=== PATIENT | female | born 1985 | race Caucasian/White ===

== ENCOUNTER → 2020-04-24 12:29 | Outpatient (BNVA) | payer OTHER, SELFPAY | PROVIDERS: PCP Nurse Practitioner Family; Referring Provider Nurse Practitioner Family; Visit Provider Student in an Organized Health Care Education/Training Program | DX: L93.2 Other local lupus erythematosus (principal); L40.9 Psoriasis, unspecified; Z79.899 Other long term (current) drug therapy | CPT/HCPCS: 99212 ==

== ENCOUNTER 2020-04-28 15:20 | Outpatient (REF) | payer OTHER, SELFPAY | END 2020-04-28 15:21 | disposition home or self-care (01) | LOC: HO.LAB 15:20 | PROVIDERS: Visit Provider Nurse Practitioner Family | DX: N39.0 Urinary tract infection, site not specified (principal) | CPT/HCPCS: 87086; 87088; 87186 ==

== ENCOUNTER 2020-07-17 13:11 | Outpatient (REF) | payer OTHER, SELFPAY | END 2020-07-17 13:12 | disposition home or self-care (01) | LOC: HO.LAB 13:11 | PROVIDERS: Visit Provider Nurse Practitioner Family | DX: N39.0 Urinary tract infection, site not specified (principal) | CPT/HCPCS: 87086; 87088; 87186 ==

== ENCOUNTER 2020-10-15 14:15 | Outpatient (REF) | payer OTHER, SELFPAY | END 2020-10-15 14:16 | disposition home or self-care (01) | LOC: HO.LNP 14:15 | PROVIDERS: Visit Provider Hospitalist | DX: Z20.822 Contact with and (suspected) exposure to COVID-19 (principal); K52.9 Noninfective gastroenteritis and colitis, unspecified | CPT/HCPCS: U0003; U0005 ==

== ENCOUNTER 2020-12-12 09:58 | Outpatient (REF) | payer OTHER, SELFPAY ==
--- NOTE | ~2020-12-12 | MM_ITS ---
EXAMINATION: MM SCREENING DIGITAL BREAST TOMOSYNTHESIS, BILATERAL CLINICAL INFORMATION: Screening. Asymptomatic. The lifetime risk of breast cancer based on the Tyrer-Cuzick Model is 17%. COMPARISON: Mammography: 08/12/2017 (baseline) TECHNIQUE: Digital breast tomosynthesis is performed in both the craniocaudal and mediolateral oblique views along with computer-aided detection (CAD). Synthesized 2D images are generated from the tomosynthesis. FINDINGS: There are scattered areas of fibroglandular density (ACR BI-RADS breast composition Category b). There are no significant masses, abnormal calcifications, or other abnormalities. Parenchymal pattern is similar to prior baseline exam. No significant changes. MM/MM tomosynthesis screening BI IMPRESSION: No mammographic evidence of malignancy. ASSESSMENT: BI-RADS 1: Negative RECOMMENDATION: Routine annual mammography screening. This patient's information was entered into a reminder system with a target due date for their next mammogram.
== END 2020-12-12 09:59 | disposition home or self-care (01) ==
LOC: HO.MAMMO 09:58
PROVIDERS: PCP Nurse Practitioner Family; Visit Provider Nurse Practitioner Family
DX: Z12.31 Encounter for screening mammogram for malignant neoplasm of breast (principal)
CPT/HCPCS: 77063; 77067

== ENCOUNTER 2021-04-22 09:07 | Outpatient (REF) | payer OTHER, SELFPAY ==
[2021-04-22 11:19] LABS: Appearance Urine HAZY; Color Urine YELLOW; Glucose Urine UA NEG (NEG); Leukocyte Esterase Urine 2+ (NEG); Nitrite Urine NEG (NEG); UACC Culture Trigger YES; Urine Blood TRACE (NEG); Urine Ketones NEG (NEG); Urine Protein NEG (NEG-TRACE)
[2021-04-22 11:45] LABS: Alanine Aminotransferase 18 U/L (0-31); Albumin Level 4.4 g/dL (3.5-5.0); Alkaline Phosphatase 47 U/L (39-117); Anion Gap 13 (12-20); Aspartate Amino Transferase 16 U/L (5-31); Bilirubin Total 0.3 mg/dL (0.0-1.0); Blood Urea Nitrogen 16 mg/dL (9-16); Calcium 9.2 mg/dL (8.4-10.2); Carbon Dioxide 25 mmol/L (22-29); Chloride 105 mmol/L (96-108); Cholesterol 199 mg/dL; Estimated Glomerular Filt Rate > 60; Glucose Fasting 104 mg/dL (60-99); HDL Cholesterol 39 mg/dL; Potassium 4.5 mmol/L (3.3-5.1); Sodium 138 mmol/L (135-145); Total Protein 7.1 g/dL (6.5-8.0); Triglycerides 420 mg/dL
[2021-04-22 11:48] LABS: Squamous Epithelial Cell Urine 2+ /LPF
[2021-04-22 11:49] LABS: Bacteria Urine 3+ /LPF; Mucus Urine TRACE /LPF; WBC Urine 30-49 /HPF (0-4)
[2021-04-22 11:56] LABS: TSH reflex Free T4 0.89 uIU/mL (0.32-4.0)
== END 2021-04-22 09:08 | disposition home or self-care (01) ==
LOC: HO.HMGCLDS 09:07
PROVIDERS: PCP Nurse Practitioner Family; Visit Provider Nurse Practitioner Family
DX: Z00.00 Encounter for general adult medical examination without abnormal findings (principal)
CPT/HCPCS: 36415; 80053; 80061; 81001; 84443; 87086; 87088; 87186

== ENCOUNTER 2022-03-12 09:29 | Outpatient (REF) | payer OTHER, SELFPAY ==
[2022-03-12 09:57] LABS: Binax Internal Control QC Valid; Binax Now Covid-19 Ag Negative (Negative)
[2022-03-12 12:25] LABS: Influenza A PCR NEGATIVE (Negative); Influenza B PCR NEGATIVE (Negative); Resp Syncy Virus RNA Qual PCR NEGATIVE (Negative); SARS COV2 PCR INHOUSE NEGATIVE (Negative)
== END 2022-03-12 09:30 | disposition home or self-care (01) ==
LOC: HO.HMGCLDS 09:29
PROVIDERS: PCP Nurse Practitioner Family; Visit Provider Physician Assistant Medical
DX: Z20.822 Contact with and (suspected) exposure to COVID-19 (principal); R05.9 Cough, unspecified
CPT/HCPCS: 0241U; 87811; C9803

== ENCOUNTER 2022-03-22 16:37 | Emergency (ER) | payer OTHER, SELFPAY ==
[2022-03-22 16:43] VITALS: BP 122/76; PULSE 60; RESP 18; TEMP 36.8; O2SAT 98; BMI 27.4
[2022-03-22 17:07] LABS: MANUAL DIFF FLAG NO
[2022-03-22 17:17] LABS: Basophils Percent Auto 0.4 % (0-2); Eosinophils Absolute Auto 0.1 X10*3/uL (0.0-0.4); Eosinophils Percent Auto 2.2 % (0-4); Hematocrit 38.5 % (37.0-47.0); Hemoglobin 12.7 g/dl (12.0-16.0); Imm Gran Abs Auto 0.02 X10*3/uL (0.00-0.03); Imm Gran Pct Auto 0.4 % (0.0-0.4); Lymphocytes Absolute Auto 2.6 X10*3/uL (1.2-4.9); Lymphocytes Percent Auto 46.3 % (20-40); Mean Corpuscular Hemoglobin 29.7 pg (27.0-33.0); Mean Corpuscular Volume 90.2 fL (80.0-98.0); Mean Platelet Volume 10.3 fL (9.4-12.3); Monocytes Absolute Auto 0.4 X10*3/uL (0.1-1.2); Monocytes Percent Auto 7.4 % (2-11); Neutrophils Absolute Auto 2.4 x10*3/uL (2.0-8.3); Neutrophils Percent Auto 43.3 % (45-73); Platelet Count 270 X10*3/uL (160-400); Red Blood Count 4.27 X10*6/uL (4.20-5.50); White Blood Count 5.6 X10*3/uL (4.8-10.8)
[2022-03-22 17:29] LABS: Anion Gap 14 (12-20); Blood Urea Nitrogen 16 mg/dL (9-16); Calcium 9.3 mg/dL (8.4-10.2); Carbon Dioxide 24 mmol/L (22-29); Chloride 104 mmol/L (96-108); Creatinine Clr Calc Pharmacy 93.8; Estimated Glomerular Filt Rate > 60; Glucose Random 94 mg/dL (60-115); Potassium 4.4 mmol/L (3.3-5.1); Sodium 138 mmol/L (135-145)
== END 2022-03-22 22:43 | disposition left against medical advice (07) ==
PROVIDERS: Emergency Provider Emergency Medicine; PCP Nurse Practitioner Family
DX: K92.1 Melena (principal); Z79.899 Other long term (current) drug therapy
CPT/HCPCS: 36415; 80048; 85025; 99281; 99283

== ENCOUNTER 2022-04-05 09:44 | Outpatient (REF) | payer OTHER, SELFPAY ==
[2022-04-05 12:39] LABS: C Reactive Protein 0.07 mg/dL (< or = 0.50)
[2022-04-05 13:06] LABS: Erythrocyte Sedimentation Rate 5 MM/HR (0-20)
[2022-04-05 13:17] LABS: Thyroid Stimulating Hormone 1.73 uIU/mL (0.32-4.0)
[2022-04-07 23:26] LABS: Transglutaminase IgA <1.0 U/mL
[2022-04-13 15:48] LABS: Endomysial IgA Antibody Negative (Negative)
== END 2022-04-05 09:45 | disposition home or self-care (01) ==
LOC: HO.WFDLDS 09:44
PROVIDERS: Visit Provider Physician Assistant
DX: R10.9 Unspecified abdominal pain (principal); R19.5 Other fecal abnormalities; R19.7 Diarrhea, unspecified
CPT/HCPCS: 36415; 84443; 85652; 86140; 86231; 86364

== ENCOUNTER → 2022-04-22 11:36 | Outpatient (BNVA) | payer OTHER, SELFPAY | PROVIDERS: PCP Nurse Practitioner Family; Visit Provider Internal Medicine Gastroenterology | DX: R19.5 Other fecal abnormalities (principal); R10.31 Right lower quadrant pain; L93.2 Other local lupus erythematosus; L40.9 Psoriasis, unspecified | CPT/HCPCS: 99212 ==

== ENCOUNTER 2022-07-25 09:24 | Outpatient (REF) | payer OTHER, SELFPAY ==
--- NOTE | ~2022-07-25 | CT_ITS ---
EXAMINATION: CT ENTEROGRAPHY ABDOMEN AND PELVIS WITH CONTRAST CLINICAL INFORMATION: Periumbilical pain. COMPARISON: None TECHNIQUE: Study performed with oral Breeza(1500 mL) and 2 cups of water to distend the abdomen. The patient was injected with 85 mL Omnipaque 350 intravenous contrast which was administered without adverse effect. Coronal and sagittal reformatted images were obtained at the technologist's workstation. This CT examination was performed using dose optimization techniques as appropriate, variously including the following: *Automated exposure control *Adjustment of mA and/or kV according to patient size (this includes techniques or standardized protocols for targeted exams where dose is matched to indication/reason for exam; i.e. extremities or head) *Use of iterative reconstruction technique DLP: 418 mGy-cm FINDINGS: GASTROINTESTINAL FINDINGS: STOMACH: Well-distended and normal in appearance. SMALL INTESTINE: Moderately well-distended without focal abnormality. Several areas of limited distention in the distal ileum are noted but no evidence to suggest obstruction or significant changes of bowel wall thickening. LARGE INTESTINE: No thickening of the cecal pole. Suggestion of thickening and mild enhancement of the ascending colon to the level of the hepatic flexure. The remaining colon is stool-filled without focal thickening or pericolonic changes. The appendix appears to be visible and normal in appearance at the base of the cecum. ADDITIONAL FINDINGS: No abnormal enhancement of the vasa recta or significant mesenteric or retroperitoneal lymphadenopathy is seen. No abdominal abscess or fistulous tract demonstrated. ABDOMINAL AND PELVIC CT FINDINGS: LIVER, GALLBLADDER, BILIARY TRACT: The liver enhances homogeneously. No focal biliary dilatation or abnormality seen. Liver size is normal. PANCREAS: Normal. SPLEEN: Normal. ADRENAL GLANDS AND KIDNEYS: The adrenal glands are normal. The patient has horseshoe kidneys with normal enhancement and no evidence of renal mass. URETERS AND BLADDER: No evidence of hydronephrosis or hydroureter. The bladder is partly distended and unremarkable. LYMPHOVASCULAR STRUCTURES: Unremarkable. PELVIC VISCERA: IUD is centrally positioned within the uterus. No focal abnormalities are seen. BONES: Unremarkable. LUNG BASES: Unremarkable. CT/CT enterography IMPRESSION: 1. No evidence of bowel obstruction. No significant thickening of the small bowel. Suggestion of thickening and mild enhancement of the ascending colon to the level of the hepatic flexure. This could reflect a mild colitis. Findings could be correlated with colonoscopy. 2. Moderate stool is seen in the colon. 3. Horseshoe kidneys without evidence of hydronephrosis or renal mass. 4. IUD is centrally positioned within the uterus.
[2022-07-25] MEDS: iohexoL 350 MG/ML 100 ML INFUS..BTL 85 ML IV (10:58)
[2022-07-25] MEDS: Sorbitol/Mannit/Xanth Imaging 500 ML LIQUID 1500 ML PO (10:59)
== END 2022-07-25 09:25 | disposition home or self-care (01) ==
LOC: HO.CT 09:24
PROVIDERS: PCP Nurse Practitioner Family; Visit Provider Internal Medicine Gastroenterology
DX: R10.33 Periumbilical pain (principal); R10.9 Unspecified abdominal pain; R19.5 Other fecal abnormalities; L93.2 Other local lupus erythematosus; L40.9 Psoriasis, unspecified
CPT/HCPCS: 74177; Q9967

== ENCOUNTER 2022-10-14 12:27 | Outpatient (REF) | payer OTHER, SELFPAY ==
[2022-10-14 13:17] LABS: Influenza A PCR NEGATIVE (Negative); Influenza B PCR NEGATIVE (Negative); Resp Syncy Virus RNA Qual PCR NEGATIVE (Negative); SARS COV2 PCR INHOUSE NEGATIVE (Negative)
== END 2022-10-14 12:28 | disposition home or self-care (01) ==
LOC: HO.LNP 12:27
PROVIDERS: Visit Provider Nurse Practitioner Family
DX: R09.89 Other specified symptoms and signs involving the circulatory and respiratory systems (principal); Z20.822 Contact with and (suspected) exposure to COVID-19
CPT/HCPCS: 0241U

== ENCOUNTER 2022-11-01 12:57 | Day surgery (SDC) | payer OTHER, SELFPAY ==
[2022-09-29 15:40] VITALS: BMI 27.4
--- NOTE | 2022-10-31 12:06 | P.CONAN_ITS ---
Documented by User: Ashanti Marc NP 10/31/22 12:06 HPI - Anesthesia Eval Consult details Narrative: 37yo F for Upper Endoscopy and Colonoscopy PMFSH Active Problems Active Problems: All Active Problems (Updated 10/18/22 @ 11:01 by Barrie Ludwig MD) Upper respiratory tract infection (Acute) Sinusitis (Acute) Pharyngitis (Acute) Urinary tract infection (Acute) Gastroenteritis (Acute) Physical exam (Acute) Urinary tract infection (Acute) Abdominal pain (Acute) Loose stools (Acute) High blood triglycerides (Acute) Psoriasis (Acute) Cutaneous lupus erythematosus (Acute) Past Medical History Medical History Cutaneous lupus erythematosus High blood triglycerides Hx of seizure disorder PONV (postoperative nausea and vomiting) Psoriasis Upper respiratory tract infection Family History Family History Father No problems noted. Mother No problems noted. Brother Depression Sister No problems noted. Sister No problems noted. Sister No problems noted. Surgical History Surgical History History of foot surgery Hx of cholecystectomy Hx of colonoscopy Hx of esophagogastroduodenoscopy Social History Social History Household Members Other:: 2 kids Housing: House Are you a primary medicare contact specialist to a significant other at home: No Do you presently have visiting nurse or other home services: No Alcohol intake: current Alcohol intake frequency: a few times a month Alcohol type: wine and hard liquor Patient Tobacco Use Status: Current everyday Tobacco user Tobacco use type: Cigarette Cigarettes Per Day: 2 Patient Given Instructions on How to Stop Smoking: Yes Date Education Initiated: 09/29/22 Use of substances other than those prescribed or required for medical reasons: Yes Substance Use Frequency: Daily Have you been hit, kicked, punched, or otherwise hurt by someone within the past year? 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 [employer] Allergies Allergy/AdvReac Type Severity Reaction Status Date / Time latex Allergy Unknown itchiness Verified 10/26/22 10:12 Exam Exam Date and Time: October 31, 2022 1206 Height,Weight and Vital Signs: Height 5 ft 2 in Weight 68.039 kg Assessment and Plan Assessment Anesthesia Assessment: Chart Reviewed Documented by User: Kadeem Jaramillo MD 11/01/22 15:03 [facility] Past Medical History Medical History Cutaneous lupus erythematosus High blood triglycerides Hx of seizure disorder PONV (postoperative nausea and vomiting) Psoriasis Upper respiratory tract infection Family History Family History Father No problems noted. Mother No problems noted. Brother Depression Sister No problems noted. Sister No problems noted. Sister No problems noted. Family history of problems with anesthesia: No Surgical History Surgical History History of foot surgery Hx of cholecystectomy Hx of colonoscopy Hx of esophagogastroduodenoscopy History of Problems with Anesthesia: No Social History Social History Household Members Other:: 2 kids Housing: House Are you a primary medicare contact specialist to a significant other at home: No Do you presently have visiting nurse or other home services: No Alcohol intake: current Alcohol intake frequency: a few times a month Alcohol type: wine and hard liquor Patient Tobacco Use Status: Current everyday Tobacco user Tobacco use type: Cigarette Cigarettes Per Day: 2 Patient Given Instructions on How to Stop Smoking: Yes Date Education Initiated: 04/06/23 Use of substances other than those prescribed or required for medical reasons: Yes Substance Use Frequency: Daily Have you been hit, kicked, punched, or otherwise hurt by someone within the past year? If so, by whom?: No Are you DNR?: No Advance Directives: No Advance Directives Information Provided: Yes Advance Directives on File: No Recently lost weight without trying: No Eating poorly because of decreased appetite: No Nutrition Risks: No Nutritional Risk Current occupational status: employed Current occupation: [employer] at [employer] Allergies Allergy/AdvReac Type Severity Reaction Status Date / Time latex Allergy Unknown itchiness Verified 10/26/22 10:12 Exam Airway Mallampati Class: I TM Dist: >3cm Neck ROM: Full Loose/Missing/Broken Teeth: No Assessment and Plan Assessment Anesthesia Assessment: Anesthesia Plan Discussed Final Anesthetic Review Family History of Problems with Anesthesia: No History of Problems with Anesthesia: No NPO: Yes ASA Class: II Final Preanesthetic Review: No Changes in Pt Med Stat, Meds/Allgs Chart Reviewed, Consent Obtained/Reviewed and Anes Risks/Benef Reviewed Patient Risk: Intermediate Procedure Risk: Low Anesthetic Plan Anesthetic Plan: MAC: Disposition: Standard PACU
[2022-11-01] VITALS (7 sets, daily range): BP systolic 90–112; BP diastolic 39–67; PULSE 51–73; RESP 14–18; TEMP 36.2–36.4; O2SAT 96–99; BMI 27.4
[2022-11-01 13:40] LABS: UPreg QC Valid YES; Urine Pregnancy NEGATIVE (NEGATIVE)
[2022-11-01] MEDS: Lactated Ringers 1,000 ML 100 ML IVCONT (13:45)
--- NOTE | 2022-11-01 14:53 | P.HPSUR_ITS ---
Pre-Procedural Eval Section A Date of Service: 11/01/22 Section B Chief Complaint: fecal abnormalities,Unspecified abdominal pain Relevant Family History (Specify if Yes): No Relevant Social History: None Present Medications: see Short Stay Collaborative assessment Medical History: Significant History (Cutaneous lupus erythematosus High blood triglycerides Hx of seizure disorder Psoriasis) History of Previous Operations: Relevant previous surgery/procedure and date(s) (cholecystectomy) Allergies: Allergies Allergy/AdvReac Type Severity Reaction Status Date / Time latex Allergy Unknown itchiness Verified 10/26/22 10:12 Review of Systems Sugical H&P ROS: Negative: Constitution, Cardiovascular, Respiratory, Neurological, Psychiatric, Hem-Onc, Allergic/Immunologic, Gastrointestinal, Genitourinary, Musculoskeletal, Integumentary, Endocrine and Eyes/Ears/ Nose/Throat Exam Surgical H&P Exam: Normal: HEENT, Normal: Heart, Normal: Lungs, Normal: Extremities, Normal: Abdomen, Normal: Skin and Normal: Neurological Plan Diagnosis/Plan: Unchanged I have reviewed the history and physical and performed a pertinent physical examination on my patient. No changes have occurred unless specified. Time Spent With Patient Time: Total time managing care of this patient today ____ minutes.
--- NOTE | 2022-11-01 14:54 | W.PM.OPN ---
Operative Note Operative Note Date of Service: 11/01/22 Narrative: Operative Information Procedure Description: EGD, Colonoscopy Indication: RLQ pain, reectal bleeding Anesthesia: MAC FLEXIBLE TRANSORAL UPPER GASTROINTESTINAL ENDOSCOPY AND COLONOSCOPY PROCEDURE NOTE UPPER ENDOSCOPY Consent: Indications for the procedure and potential complications of bleeding, perforation, reaction to medications and missed diagnosis were discussed with the patient and informed consent was obtained. Instrument: Olympus GIF H 190 J mid size upper endoscope Monitoring: Vital signs and clinical assessment, continuous EKG monitoring, Pulse oximetry, Carbon Dioxide monitoring and blood pressure monitoring were done throughout the procedure. Procedure: The patient was placed in the left lateral decubitis position and pre-procedure medications were administered and a bite block was placed. The endoscope was inserted into the mouth and advanced under direct vision to the third part of duodenum. A careful inspection was made as the upper endoscope was withdrawn including a retroflexed examination of the proximal stomach; Findings and interventions are described below. Findings: Larynx:normal Esophagus: GE junction at 36 cm, diaphragm hiatus at 36 cm, mild erythema, bx taken GEJ, distal and proximal esophagus Stomach: patchy erythema and scarring. Biopsies were obtained. Grade 2 flap valve on retroflexed examination of the cardia. Duodenum: Normal bulb and descending duodenum, bx taken Intervention: Biopsies as noted above COLONOSCOPY Instrument: Olympus variable stiffness pediatric scope 190L Colonoscopy Monitoring: Vital signs and clinical assessment, continuous EKG monitoring, Pulse oximetry, Carbon Dioxide monitoring and blood pressure monitoring were done throughout the procedure. Colon withdrawal time was 10 minutes. Procedure: The patient was placed in the left lateral decubitis position and pre-procedure medications were administered. After a digital rectal examination of the ano-rectum, the video colonoscope was inserted into the rectum and advanced through the colon to the cecum/TI. The colonoscope was slowly withdrawn in a retrograde panoramic fashion and the colon mucosa was carefully examined including a retroflexed view of the rectum. Findings and interventions are described below. Procedure Difficulty:easy Findings: Terminal Ileum-normal, random bx taken Random colon bx taken from right, left and rectum Cecum:normal Ascending Colon: normal Transverse Colon -normal Descending Colon:normal Sigmoid Colon: normal Rectum: Retroflexion with small inflammed, internal hemorrhoids, grade 1 Anorectum - normal Colon preparation: Walker Bowel Preparation Scale Right colon; 3 Transverse colon: 3 Left colon; 3 (0 = Unprepared colon segment with mucosa not seen due to solid stool that cannot be cleared. 1 = Portion of mucosa of the colon segment seen, but other areas of the colon segment not well seen due to staining, residual stool and/or opaque liquid. 2 = Minor amount of residual staining, small fragments of stool and/or opaque liquid, but mucosa of colon segment seen well. 3 = Entire mucosa of colon segment seen well with no residual staining, small fragments of stool or opaque liquid) Impression and Post Procedure Diagnosis: Endoscopy Findings: gastritis esophagitis Colonoscopy Findings: internal hemorrhoids Plan: Await Pathology results Repeat Colonoscopy aged 45 yrs or earlier if clinically indicated High fiber diet leaflet avoid straining at stool, epsom salts and sitz bath, anusol supps or cream if neg then can consider VCE Above findings were reviewed with the patient and relevant handouts were provided if indicated.
== END 2022-11-01 16:19 | disposition home or self-care (01) ==
PROVIDERS: Nurse Practitioner; PCP Nurse Practitioner Family; Visit Provider Internal Medicine Gastroenterology
PROC: (CPT 45380; principal; 2022-11-01 15:00)
DX: K62.5 Hemorrhage of anus and rectum (principal); R19.5 Other fecal abnormalities; K64.0 First degree hemorrhoids; R10.31 Right lower quadrant pain; K29.50 Unspecified chronic gastritis without bleeding; K20.90 Esophagitis, unspecified without bleeding; K44.9 Diaphragmatic hernia without obstruction or gangrene; L93.2 Other local lupus erythematosus; L40.9 Psoriasis, unspecified; E78.1 Pure hyperglyceridemia; Z79.899 Other long term (current) drug therapy; Z86.69 Personal history of other diseases of the nervous system and sense organs; Z90.49 Acquired absence of other specified parts of digestive tract; Z91.040 Latex allergy status; F17.210 Nicotine dependence, cigarettes, uncomplicated
CPT/HCPCS: 45380; 43239; 36415; 81025; 88184; 88185; 88300; 88305; 88313; 88341; 88342

== ENCOUNTER → 2022-11-14 08:59 | Outpatient (BNVA) | payer OTHER, SELFPAY | PROVIDERS: PCP Nurse Practitioner Family; Visit Provider Physician Assistant | DX: K52.9 Noninfective gastroenteritis and colitis, unspecified (principal); M35.9 Systemic involvement of connective tissue, unspecified; R19.5 Other fecal abnormalities | CPT/HCPCS: 99212 ==

== ENCOUNTER 2022-12-26 08:14 | Outpatient (REF) | payer OTHER, SELFPAY ==
--- NOTE | ~2022-12-26 | CT_ITS ---
EXAMINATION: CT ENTEROGRAPHY ABDOMEN AND PELVIS WITH CONTRAST CLINICAL INFORMATION: Iron deficiency COMPARISON: Previous CT enterography exam June 2022 TECHNIQUE: Study performed with oral VoLumen (1350 mL) and 480 mL of water to distend the abdomen. The patient was injected with 85 mL Omnipaque 350 intravenous contrast which was administered without adverse effect. Coronal and sagittal reformatted images were obtained at the technologist's workstation. This CT examination was performed using dose optimization techniques as appropriate, variously including the following: *Automated exposure control *Adjustment of mA and/or kV according to patient size (this includes techniques or standardized protocols for targeted exams where dose is matched to indication/reason for exam; i.e. extremities or head) *Use of iterative reconstruction technique DLP: 358 mGy-cm FINDINGS: GASTROINTESTINAL FINDINGS: Stomach: Well-distended and normal in appearance. Small intestine: Satisfactorily distended and normal in appearance. Large intestine: Question mild colitis of the distal left colon and proximal sigmoid colon with wall thickening versus underdistention. Previously questioned area of mild wall thickening ascending colon on June 2022 exam is no longer seen. No perirectal changes demonstrated. The appendix is normal. Additional findings: No abnormal enhancement of the vasa recta or significant mesenteric or retroperitoneal lymphadenopathy is seen. No abdominal abscess or fistulous tract demonstrated. ABDOMINAL AND PELVIC CT FINDINGS: Liver, gallbladder, biliary tract: The liver is normal. The gallbladder is been. Pancreas: Normal Spleen: Normal Adrenal glands and kidneys: Normal adrenal glands. Horseshoe kidney. Ureters and bladder: Normal. IUD in the uterus in satisfactory position.. Lymphovascular structures: Normal Bones: Increased sclerosis sacroiliac joints, left greater than right. Slight increased sclerosis at the pubic symphysis. Lung bases: Normal CT/CT enterography IMPRESSION: Question mild colitis of the distal left or proximal sigmoid colon. A portion kidney.
== END 2022-12-26 08:15 | disposition home or self-care (01) ==
LOC: HO.CT 08:14
PROVIDERS: PCP Nurse Practitioner Family; Visit Provider Physician Assistant
DX: E61.1 Iron deficiency (principal); K52.9 Noninfective gastroenteritis and colitis, unspecified; M35.9 Systemic involvement of connective tissue, unspecified; R19.5 Other fecal abnormalities
CPT/HCPCS: 74177; Q9967

== ENCOUNTER 2023-03-22 09:02 | Outpatient (AMB) | payer OTHER, SELFPAY ==
--- NOTE | 2023-03-22 09:03 | MHC.PC.OV ---
Vital Signs 03/22/23 09:05 Height 5 ft 2 in Weight 150 lb BMI 27.4 BP 112/74 Blood Pressure Location Rt brachial Position Sitting Pulse 80 Pulse Source Pulse Oximeter Pulse Oximetry (%) 98 Oxygen Delivery Method Room Air Intake Visit Reasons: Annual PE Allergies latex Allergy (Unknown, Verified 03/22/23 09:06) itchiness Tobacco use date assessed: 03/22/23 Dental Screening Dental Screen Date: 03/22/23 Did you have a dental visit in the last 12 months?: Yes Did you have a dental problem in the last 6 months where you did not have access to dental care?: No Was dental information given to patient?: Patient has dentist HPI Annual PE HPI Details Pt is here for a PE. Will order labs. 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 Pt is following up with GI. [facility] Medical History PONV (postoperative nausea and vomiting) Upper respiratory tract infection High blood triglycerides Hx of seizure disorder Psoriasis Cutaneous lupus erythematosus Surgical History Hx of colonoscopy Hx of esophagogastroduodenoscopy History of foot surgery Hx of cholecystectomy Family History Father No problems noted. Mother No problems noted. Brother Depression Sister No problems noted. Sister No problems noted. Sister No problems noted. 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 How often do you have a drink containing alcohol?: Never 3. How often do you have six or more drinks on one occasion?: Never Total Score: 0 Score Reviewed/Action Taken: No Review of Systems Const Denies chills and Denies fever(s) Eyes Denies blurry vision ENT Denies vertigo, Denies dizziness and Denies sore throat Card Denies chest pain at rest, Denies chest pain with activity, Denies diaphoresis, Denies dyspnea and Denies dyspnea on exertion Resp Denies cough, Denies dyspnea, Denies dyspnea on exertion and Denies wheezing GI Denies abdominal pain, Denies melena, Denies hematochezia, Denies constipation, Denies diarrhea and Denies loose stools Denies hematuria Musc Denies numbness and Denies tingling Skin/Breast Denies lesions Neuro Denies vertigo, Denies dizziness, Denies numbness and Denies tingling Psych Denies anxiety, Denies depression, Denies homicidal ideation, Denies suicidal ideation and Denies other (substance abuse) Aller/Immun Denies wheezing Physical exam (Primary Care) Vital Signs: Last Vital Signs Pulse 80 03/22/23 09:05 BP 112/74 03/22/23 09:05 Pulse Ox 98 03/22/23 09:05 Oxygen Delivery Method Room Air 03/22/23 09:05 BMI result Body Mass Index 27.4 Tobacco/Smoking Status: Tobacco use Status Tobacco use date assessed 03/22/23 03/22/23 09:11 Patient Tobacco Use Status Current everyday Tobacco 03/22/23 09:11 Tobacco use type Cigarette 03/22/23 09:11 e-Cigarette/Vaping Use Never Used 03/22/23 09:11 Thrive Assessment: Date of Thrive Assessment Date Thrive assessed 02/02/21 03/22/23 09:11 Const General: cooperative Nutritional Appearance: well nourished Orientation/consciousness: patient oriented x3 HENMT Head: Yes normal to inspection, Yes normocephalic and Yes atraumatic Ears: TM's normal bilaterally Eyes General: appearance normal, both eyes and all related structures Alignment and Position: alignment normal and position normal Neck Neck: Yes normal visual inspection and Yes no lymphadenopathy Thyroid: Thyroid normal Resp Effort & Inspection: normal respiratory effort Auscultation: clear to auscultation bilaterally Cardio Rate: regular rate Rhythm: regular rhythm Heart sounds: S1 normal heart sound present, S2 normal heart sound present and no murmurs GI Palpation (GI): Soft to palpation and nontender Auscultation: normal bowel sounds Skin Rashes: no rashes Neuro General: patient oriented x3, moves all extremities, no focal motor deficits and deep tendon reflexes 2+ bilaterally Romberg Test: Negative Psych Appearance: grossly normal Mental Status: mental status grossly normal Speech and movement: Normal speech and movement present Affect: normal affect Attitude: cooperative Thought process: Normal thought process present Thought content: Normal thought content present Insight: Good insight present (Psych) Judgement: Good judgement present (Psych) Assessment and Plan Assessment & Plan (1) Physical exam: Code(s): Z00.00 - Encounter for general adult medical examination without abnormal findings Plan: Labs ordered Plan The patient agreed to the use of a medical billing specialist for this encounter. Scribed for SAMUEL Rayo by Erika Osman medical billing specialist, on 03/22/2023 at 09:20 EST. Orders: Orders Complete Blood Count Auto Diff Today Z00.00 - Encounter for general adult medical examination without abnormal findings TSH reflex Free T4 Today Z00.00 - Encounter for general adult medical examination without abnormal findings Comprehensive [place]. Panel Fast Today Z00.00 - Encounter for general adult medical examination without abnormal findings UA CC w/rflx Micro + Cult Today Z00.00 - Encounter for general adult medical examination without abnormal findings Lipid Panel Today Z00.00 - Encounter for general adult medical examination without abnormal findings Coding Level of Care Code Est Pt Prev Care [id number]([id number]) Diagnoses Physical exam Z00.00
[2023-03-22 09:05] VITALS: BP 112/74; PULSE 80; O2SAT 98; BMI 27.4
== END 2023-03-22 09:30 | disposition home or self-care (01) ==
PROVIDERS: PCP Nurse Practitioner Family; Visit Provider Nurse Practitioner Family
DX: Z00.00 Encounter for general adult medical examination without abnormal findings (principal)
CPT/HCPCS: 99395

== ENCOUNTER 2023-04-21 08:55 | Outpatient (AMB) | payer OTHER, SELFPAY ==
[2023-04-21 09:27] VITALS: BP 128/60; PULSE 79; TEMP 36.4; O2SAT 96; BMI 26.7
--- NOTE | 2023-04-21 09:27 | AM.OFFWIN_ITS ---
Intake Vital Signs 04/21/23 09:27 Height 5 ft 2 in Weight 146 lb BMI 26.7 BP 128/60 Blood Pressure Location Lt brachial Position Sitting Pulse 79 Pulse Source Pulse Oximeter Temp 97.5 F Temp Source Temporal Artery Scan Pulse Oximetry (%) 96 Oxygen Delivery Method Room Air Intake Visit Reasons: EP Cold, Cough (masked) Intake Note: pt is here for c/o cold, cough, sore throat Patient Tobacco Use Status: Current everyday Tobacco user Allergies latex Allergy (Unknown, Verified 04/21/23 09:28) itchiness Do you need a note to return to daycare/school/sports/work: Yes HPI HPI Comments History of Present Illness Details This is a 37-year-old female with a past medical history of depression and asthma presenting for evaluation of a headache and sore throat that she has had since Monday. Patient states that her son has also been sick with similar symptoms. She denies having any fevers, chills, ear pain or shortness of breath however does describe having an occasional nocturnal cough with wheezing. Patient states she has run out of her albuterol inhaler and be lieves she may still have a refill remaining at the pharmacy. The patient and her son both took tests for COVID-19 at home which were negative. [facility] Medical History PONV (postoperative nausea and vomiting) Upper respiratory tract infection High blood triglycerides Hx of seizure disorder Psoriasis Cutaneous lupus erythematosus Surgical History Hx of colonoscopy Hx of esophagogastroduodenoscopy History of foot surgery Hx of cholecystectomy Family History Father No problems noted. Mother No problems noted. Brother Depression Sister No problems noted. Sister No problems noted. Sister No problems noted. 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 [email or web address] Cognitive needs: No Hearing needs: No Vision needs: Yes Review of Systems Const All systems reviewed & are unremarkable except as noted in HPI and below Denies chills, Reports fatigue, Denies fever(s), Denies headache(s) and Denies weakness Eyes Reports as per HPI ENT Reports as per HPI, Denies otalgia, Denies headache(s), Denies sinus pressure and Reports sore throat Card Denies dyspnea and Denies dyspnea on exertion Resp Reports cough, Denies dyspnea, Denies dyspnea on exertion and Reports wheezing Musc Reports no additional complaints Skin/Breast Reports system reviewed and no additional complaints, except as documented Neuro Reports no additional complaints, Denies headache(s) and Denies weakness Endo Reports fatigue Aller/Immun Reports wheezing Physical Exam Vital Signs: Last Vital Signs Temp 97.5 F 04/21/23 09:27 Pulse 79 04/21/23 09:27 BP 128/60 04/21/23 09:27 Pulse Ox 96 04/21/23 09:27 Oxygen Delivery Method Room Air 04/21/23 09:27 BMI result Body Mass Index 26.7 Const General: cooperative, healthy appearing, comfortable and no acute distress Nutritional Appearance: average body habitus and well nourished Orientation/consciousness: patient oriented x3 Limitations: no limitations HEENT Head: Yes normocephalic Ears: external ears normal, right TM abnormal (right TM bulging without erythema) and TM normal on the left General nose exam: Normal external nose present Face and sinus: Yes normal facial exam and Yes sinuses nontender Mouth: Normal oral and palatal mucosa present, oropharynx normal and moist mucous membranes Teeth and gingiva: dentition normal Throat: Yes posterior oropharynx normal, Yes uvula midline and No postnasal drainage Eyes General: appearance normal, both eyes and all related structures Eyelids: Yes eyelids normal Conjunctivae: conjunctivae normal Sclerae: sclerae normal Pupils: Equal, round and reactive pupils present Direct Ophthalmoscopy: no photophobia Neck Lymphatic: no lymphadenopathy noted Resp Effort & Inspection: normal respiratory effort, able to speak in complete sentences, audible wheezes (right, expiratory only, no tachypnea) and no respiratory distress Auscultation: wheezes Cardio Rate: regular rate Rhythm: regular rhythm Neuro General: patient oriented x3 Cranial nerves: Yes Equal, round and reactive pupils present Psych Appearance: grossly normal Mental Status: mental status grossly normal Insight: Good insight present (Psych) Judgement: Good judgement present (Psych) Results AMB Rapid Strep AMB Rapid Strep Negative Last Edit by Sb Farnsworth CMA on 04/21/23 09 :58 Results Reviewed Results Reviewed: negative rapid strep test Assessment & Plan Assessment & Plan (1) Acute pharyngitis: Code(s): J02.9 - Acute pharyngitis, unspecified Plan: Albuterol inhaler q.6 hours p.r.n.; patient's rapid strep test is negative and the patient will be discharged home with supportive measures only. Given this patient's examination, antibiotic therapy is not warranted at this time. Orders: Orders AMB Rapid Strep Screen Today Z13.9 - Encounter for screening, unspecified Coding Level of Care Code Est Pt Level 3 (12607) Diagnoses Acute pharyngitis J02.9 Time Spent (min) 20
== END 2023-04-21 10:18 | disposition home or self-care (01) ==
PROVIDERS: PCP Nurse Practitioner Family; Visit Provider Physician Assistant
DX: J02.9 Acute pharyngitis, unspecified (principal)
CPT/HCPCS: 87880; 99213

== ENCOUNTER 2023-05-02 11:34 | Outpatient (AMB) | payer OTHER, SELFPAY ==
--- NOTE | 2023-05-02 11:51 | MHC.OFFWIV ---
Intake Vital Signs 05/02/23 11:52 Height 5 ft 2 in Weight 151 lb 4 oz BMI 27.7 BP 118/72 Blood Pressure Location Rt brachial Position Sitting Pulse 71 Pulse Source Pulse Oximeter Pulse Oximetry (%) 97 Oxygen Delivery Method Room Air Intake Visit Reasons: EST/rash on genitals/painful (lobby) Patient Tobacco Use Status: Current everyday Tobacco user Allergies gluten [GLUTEN] Allergy (Mild, Verified 05/02/23 11:52) SWELLING, ABDOMINAL PAIN latex [LATEX] Allergy (Unknown, Verified 05/02/23 11:52) HIVES AND ITCHING Medication List - Last Reconciled 05/02/23 by Matilde Alegre MD albuterol sulfate 90 mcg/actuation 2 puffs inhalation Q4-6H PRN 30 days cetirizine 10 mg PO DAILY PRN 30 days fluoxetine 60 mg (3 x 20 mg) PO DAILY 90 days omega-3 acid ethyl esters 1 cap PO BID 30 days Do you need a note to return to daycare/school/sports/work: Yes HPI EST/rash on genitals/painful (lobby) HPI Details Patient is 37-year-old female came to be evaluated for painful genitalia rash On examination I do not see any rash or any discharge Patient says that she has a gluten sensitivity an it can be secondary to that. I have ordered herpes antibody test with the patient just in case. Meanwhile I would recommend to use diaper rash cream as needed for irritation. PFSH Medical History PONV (postoperative nausea and vomiting) Upper respiratory tract infection High blood triglycerides Hx of seizure disorder Psoriasis Cutaneous lupus erythematosus Surgical History Hx of colonoscopy Hx of esophagogastroduodenoscopy History of foot surgery Hx of cholecystectomy Family History Father No problems noted. Mother No problems noted. Brother Depression Sister No problems noted. Sister No problems noted. Sister No problems noted. 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 [employer] Cognitive needs: No Hearing needs: No Vision needs: Yes Review of Systems Const All systems reviewed & are unremarkable except as noted in HPI and below Physical Exam Vital Signs: Last Vital Signs Pulse 71 05/02/23 11:52 BP 118/72 05/02/23 11:52 Pulse Ox 97 05/02/23 11:52 Oxygen Delivery Method Room Air 05/02/23 11:52 BMI result Body Mass Index 27.7 Const General: no acute distress Orientation/consciousness: patient oriented x3 Eyes General: appearance normal, both eyes and all related structures Resp Effort & Inspection: normal respiratory effort and able to speak in complete sentences Auscultation: clear to auscultation bilaterally Cardio Other: S1 S2 Other: No discharge, rash noted on genital exam Neuro General: patient oriented x3 Psych Mental Status: mental status grossly normal Assessment & Plan Assessment & Plan (1) Pain of female genitalia: Code(s): N94.9 - Unspecified condition associated with female genital organs and menstrual cycle Plan Patient is 37-year-old female came to be evaluated for painful genitalia rash On examination I do not see any rash or any discharge Patient says that she has a gluten sensitivity an it can be secondary to that. I have ordered herpes antibody test with the patient just in case. Meanwhile I would recommend to use diaper rash cream as needed for irritation. Orders: Orders Herpes Simplex Virus Ab IgG Today N94.9 - Unspecified condition associated with female genital organs and menstrual cycle Coding Level of Care Code Est Pt Level 3 (89382) Diagnoses Pain of female genitalia N94.9
[2023-05-02 11:52] VITALS: BP 118/72; PULSE 71; O2SAT 97; BMI 27.7
== END 2023-05-02 13:00 | disposition home or self-care (01) ==
PROVIDERS: PCP Nurse Practitioner Family; Visit Provider Internal Medicine
DX: N94.9 Unspecified condition associated with female genital organs and menstrual cycle (principal)
CPT/HCPCS: 99213

== ENCOUNTER 2023-05-03 08:50 | Outpatient (REF) | payer OTHER, SELFPAY ==
[2023-05-03 09:19] LABS: MANUAL DIFF FLAG NO
[2023-05-03 09:26] LABS: Basophils Percent Auto 0.4 % (0-2); Eosinophils Absolute Auto 0.1 X10*3/uL (0.0-0.4); Eosinophils Percent Auto 1.6 % (0-4); Hematocrit 40.6 % (37.0-47.0); Hemoglobin 13.6 g/dl (12.0-16.0); Imm Gran Abs Auto 0.02 X10*3/uL (0.00-0.03); Imm Gran Pct Auto 0.3 % (0.0-0.4); Lymphocytes Absolute Auto 1.8 X10*3/uL (1.2-4.9); Lymphocytes Percent Auto 26.8 % (20-40); Mean Corpuscular HGB Conc 33.5 g/dl (31.0-35.0); Mean Corpuscular Hemoglobin 30.3 pg (27.0-33.0); Mean Corpuscular Volume 90.4 fL (80.0-98.0); Mean Platelet Volume 9.9 fL (9.4-12.3); Monocytes Absolute Auto 0.3 X10*3/uL (0.1-1.2); Neutrophils Absolute Auto 4.5 x10*3/uL (2.0-8.3); Neutrophils Percent Auto 66.9 % (45-73); Platelet Count 243 X10*3/uL (160-400); Red Blood Count 4.49 X10*6/uL (4.20-5.50); Red Cell Distribution Width 13.4 % (11.0-16.0); White Blood Count 6.7 X10*3/uL (4.8-10.8)
[2023-05-03 09:59] LABS: Alanine Aminotransferase 16 U/L (0-31); Albumin Level 4.5 g/dL (3.5-5.0); Alkaline Phosphatase 38 U/L (39-117); Anion Gap 11 (12-20); Aspartate Amino Transferase 15 U/L (5-31); Bilirubin Total 0.4 mg/dL (0.0-1.0); Blood Urea Nitrogen 20 mg/dL (9-16); Calcium 9.4 mg/dL (8.4-10.2); Carbon Dioxide 28 mmol/L (22-29); Chloride 106 mmol/L (96-108); Cholesterol 160 mg/dL (<200); Estimated Glomerular Filt Rate > 60; Glucose Fasting 103 mg/dL (60-99); HDL Cholesterol 53 mg/dL (>40); LDL Cholesterol Calculated 89 mg/dL (<100); Potassium 4.2 mmol/L (3.3-5.1); Sodium 141 mmol/L (135-145); Total Protein 7.1 g/dL (6.5-8.0); Triglycerides 94 mg/dL (<150)
[2023-05-03 10:13] LABS: TSH reflex Free T4 0.52 uIU/mL (0.32-4.0)
[2023-05-03 10:22] LABS: Appearance Urine Clear; Color Urine Yellow; Glucose Urine UA Negative (Negative); Leukocyte Esterase Urine Negative (Negative); Nitrite Urine Negative (Negative); PH 6.5 (5.0-9.0); Specific Gravity - Urine 1.015 (1.005-1.025); Urine Blood Negative (Negative); Urine Ketones Negative (Negative); Urine Protein Negative (Neg-Trace)
[2023-05-04 18:59] LABS: Herpes Simplex Type 1 IgG <0.90 index; Herpes Simplex Type 2 IgG <0.90 index
== END 2023-05-03 08:51 | disposition home or self-care (01) ==
LOC: HO.LAB 08:50
PROVIDERS: PCP Nurse Practitioner Family; Visit Provider Internal Medicine
DX: Z00.00 Encounter for general adult medical examination without abnormal findings (principal); N94.9 Unspecified condition associated with female genital organs and menstrual cycle
CPT/HCPCS: 36415; 80053; 80061; 81003; 84443; 85025; 86695; 86696

== ENCOUNTER 2023-05-05 09:01 | Outpatient (AMB) | payer OTHER, SELFPAY ==
[2023-05-05 09:02] VITALS: BP 122/80; PULSE 77; TEMP 36.6; O2SAT 98; BMI 28.7
--- NOTE | 2023-05-05 09:02 | AM.OFFWIN_ITS ---
Intake Vital Signs 05/05/23 09:02 Height 5 ft 2 in Weight 157 lb BMI 28.7 BP 122/80 Blood Pressure Location Rt brachial Position Sitting Pulse 77 Pulse Source Pulse Oximeter Temp 97.8 F Temp Source Temporal Artery Scan Pulse Oximetry (%) 98 Oxygen Delivery Method Room Air Intake Visit Reasons: EP Sore throat/headache 3 days masked in lobby Intake Note: pt is here for c/o sore throat and headache for 3x days Patient Tobacco Use Status: Current everyday Tobacco user Allergies gluten [GLUTEN] Allergy (Mild, Verified 05/05/23 09:03) SWELLING, ABDOMINAL PAIN latex [LATEX] Allergy (Unknown, Verified 05/05/23 09:03) HIVES AND ITCHING Do you need a note to return to daycare/school/sports/work: Yes HPI HPI Comments History of Present Illness Details The patient presents to urgent care for evaluation of sore throat headache and cough. She reports the symptoms have been going on for Three days. she denies nausea vomiting fever chills. Patient is a smoker [facility] Medical History PONV (postoperative nausea and vomiting) Upper respiratory tract infection High blood triglycerides Hx of seizure disorder Psoriasis Cutaneous lupus erythematosus Surgical History Hx of colonoscopy Hx of esophagogastroduodenoscopy History of foot surgery Hx of cholecystectomy Family History Father No problems noted. Mother No problems noted. Brother Depression Sister No problems noted. Sister No problems noted. Sister No problems noted. 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 [employer] Cognitive needs: No Hearing needs: No Vision needs: Yes Review of Systems ENT Denies dizziness, Reports nasal congestion and Reports sore throat Card Denies rapid heart rate, Denies dyspnea and Denies dyspnea on exertion Resp Denies dyspnea and Denies dyspnea on exertion GI Denies dyspepsia and Denies heartburn Musc Denies arthralgias and Denies muscle cramps Neuro Denies dizziness, Denies focal weakness and Denies Other visual disturbances Physical Exam Vital Signs: Last Vital Signs Temp 97.8 F 05/05/23 09:02 Pulse 77 05/05/23 09:02 BP 122/80 05/05/23 09:02 Pulse Ox 98 05/05/23 09:02 Oxygen Delivery Method Room Air 05/05/23 09:02 BMI result Body Mass Index 28.7 Const General: healthy appearing and no acute distress HEENT Mouth: Normal oral and palatal mucosa present Resp Effort & Inspection: normal respiratory effort and able to speak in complete sentences Auscultation: clear to auscultation bilaterally Cardio Rate: regular rate Rhythm: regular rhythm Results AMB Rapid Strep AMB Rapid Strep Negative Last Edit by Sb Farnsworth CMA on 05/05/23 09 :15 Results Reviewed Results Reviewed: Laboratory Last Values Strep Scn Rapid Clinic Negative 05/05/23 09:14 Assessment & Plan Assessment & Plan (1) Upper respiratory tract infection: Code(s): J06.9 - Acute upper respiratory infection, unspecified Plan symptoms consistent with viral URI. Rapid strep negative. patient urged to quit cigarette smoking and H for with regards to this viral illness supportive care including ibuprofen warm salt water gargles. Coding Level of Care Code Est Pt Level 3 (86545) Diagnoses Upper respiratory tract infection J06.9
== END 2023-05-05 09:51 | disposition home or self-care (01) ==
PROVIDERS: PCP Nurse Practitioner Family; Visit Provider Emergency Medicine
DX: J06.9 Acute upper respiratory infection, unspecified (principal); J02.9 Acute pharyngitis, unspecified
CPT/HCPCS: 87880; 99213

== ENCOUNTER 2023-08-02 10:08 | Outpatient (AMB) | payer OTHER, SELFPAY ==
[2023-08-02 10:40] VITALS: BP 106/72; PULSE 71; O2SAT 98; BMI 27.5
--- NOTE | 2023-08-02 10:40 | MHC.PC.OV ---
Vital Signs 08/02/23 10:40 Height 5 ft 2 in Weight 150 lb 8 oz BMI 27.5 BP 106/72 Blood Pressure Location Lt brachial Position Sitting Pulse 71 Pulse Source Pulse Oximeter Pulse Oximetry (%) 98 Oxygen Delivery Method Room Air Intake Visit Reasons: HDF [facility]/Hypotension Intake Note: Pt is here to follow up from [facility] Allergies gluten [GLUTEN] Allergy (Mild, Verified 08/02/23 10:43) SWELLING, ABDOMINAL PAIN latex [LATEX] Allergy (Unknown, Verified 08/02/23 10:43) HIVES AND ITCHING Tobacco use date assessed: 08/02/23 Dental Screening Dental Screen Date: 08/02/23 Did you have a dental visit in the last 12 months?: Yes Did you have a dental problem in the last 6 months where you did not have access to dental care?: No Was dental information given to patient?: Patient has dentist HPI [facility]/Hypotension HPI Details Pt was seen in the ER on 07/28 after a syncopal episode. She reportedly lost consciousness and hit her head. Pt had reportedly not eaten anything that day. She was drinking alcohol prior to this and her ethanol level was positive. Pt was found to be hypotensive in the ER which resolved with fluids. CT of the head/brain showed a faint 5mmg hyperdensity near the genu of the corpus callosum with no facial bone fractures on CT maxillofacial scan. Chest CT showed no acute blunt trauma. Trauma surgery was involved and signed off. It was recommended have a repeat CT for resolution for stability of the hyperdensity of her brain, will order. Encouraged pt to push fluids. Pt reports that she is no longer drinking alcohol. Denies any dizziness, blurred vision, and N/V. Pt is interested in smoking cessation, currently smoking half a pack per day. Will send nicotine patches. [facility] Medical History PONV (postoperative nausea and vomiting) Upper respiratory tract infection High blood triglycerides Hx of seizure disorder Psoriasis Cutaneous lupus erythematosus Surgical History Hx of colonoscopy Hx of esophagogastroduodenoscopy History of foot surgery Hx of cholecystectomy Family History Father No problems noted. Mother No problems noted. Brother Depression Sister No problems noted. Sister No problems noted. Sister No problems noted. 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 [employer] Cognitive needs: No Hearing needs: No Vision needs: Yes Questionnaire Thrive Questionnaire Date Thrive assessed: 02/02/21 Review of Systems Const Reports as per HPI Physical exam (Primary Care) Vital Signs: Last Vital Signs Pulse 71 08/02/23 10:40 BP 106/72 08/02/23 10:40 Pulse Ox 98 08/02/23 10:40 Oxygen Delivery Method Room Air 08/02/23 10:40 BMI result Body Mass Index 27.5 Tobacco/Smoking Status: Tobacco use Status Tobacco use date assessed 08/02/23 08/02/23 10:46 Patient Tobacco Use Status Current everyday Tobacco 08/02/23 10:40 Tobacco use type Cigarette 08/02/23 10:40 e-Cigarette/Vaping Use Never Used 08/02/23 10:40 Thrive Assessment: Date of Thrive Assessment Date Thrive assessed 02/02/21 08/02/23 10:40 Const General: cooperative Orientation/consciousness: patient oriented x3 Eyes Pupils: Equal, round and reactive pupils present Skin Other: fading ecchymosis surrounding orbitals, faint scab to tip of nose Neuro Other: arm pull test negative, - romberg, finger to thumb intact, heel to cage intact, able to tandem walk, no nystagmus with 6 cardinal gazes General: patient oriented x3 and CN's II-XI intact bilaterally Cranial nerves: Yes Equal, round and reactive pupils present Psych Appearance: grossly normal Mental Status: mental status grossly normal Speech and movement: Normal speech and movement present Affect: normal affect Attitude: cooperative Thought process: Normal thought process present Thought content: Normal thought content present Insight: Good insight present (Psych) Judgement: Good judgement present (Psych) Assessment and Plan Assessment & Plan (1) Injury of head with subdural hemorrhage: Code(s): S06.5XAA - Traumatic subdural hemorrhage with loss of consciousness status unknown, initial encounter; S09.90XA - Unspecified injury of head, initial encounter Plan: repeat CT scan in approx 4 weeks (2) Hypotension: Code(s): I95.9 - Hypotension, unspecified Plan: most likely related to numerous factors including dehydration and etoh use. educated on dangers of both (3) Smoker: Code(s): F17.200 - Nicotine dependence, unspecified, uncomplicated Plan: nicotine patches sent (4) ETOH abuse: Code(s): F10.10 - Alcohol abuse, uncomplicated Plan The patient agreed to the use of a medical technologist microbiology for this encounter. Scribed for JUN Rayo-FORTUNATO by Erika Osman medical technologist microbiology, on 08/02/2023 at 11:00 EST. Orders: Orders CT head/brain wo IV con 4 Weeks S06.5XAA - Traumatic subdural hemorrhage with loss of consciousness status unknown, initial encounter, S09.90XA - Unspecified injury of head, initial encounter Complete Blood Count Auto Diff Today I95.9 - Hypotension, unspecified, S06.5XAA - Traumatic subdural hemorrhage with loss of consciousness status unknown, initial encounter, S09.90XA - Unspecified injury of head, initial encounter UA CC w/rflx Micro + Cult Today I95.9 - Hypotension, unspecified, S06.5XAA - Traumatic subdural hemorrhage with loss of consciousness status unknown, initial encounter, S09.90XA - Unspecified injury of head, initial encounter Comprehensive [place]. Panel Fast Today I95.9 - Hypotension, unspecified, S06.5XAA - Traumatic subdural hemorrhage with loss of consciousness status unknown, initial encounter, S09.90XA - Unspecified injury of head, initial encounter TSH reflex Free T4 Today I95.9 - Hypotension, unspecified, S06.5XAA - Traumatic subdural hemorrhage with loss of consciousness status unknown, initial encounter, S09.90XA - Unspecified injury of head, initial encounter Medications: New nicotine (Nicoderm CQ) 1 patch transdermal DAILY 28 ea 0RF Coding Level of Care Code Est Pt Level 3 (49398) Diagnoses Injury of head with subdural hemorrhage S06.5XAA; S09.90XA Hypotension I95.9 Smoker F17.200 ETOH abuse F10.10
== END 2023-08-02 12:39 | disposition home or self-care (01) ==
PROVIDERS: PCP Nurse Practitioner Family; Visit Provider Nurse Practitioner Family
DX: S06.5XAA Traumatic subdural hemorrhage with loss of consciousness status unknown, initial encounter (principal); S09.90XA Unspecified injury of head, initial encounter; I95.9 Hypotension, unspecified; F17.200 Nicotine dependence, unspecified, uncomplicated; F10.10 Alcohol abuse, uncomplicated
CPT/HCPCS: 99213

== ENCOUNTER 2023-08-08 12:17 | Outpatient (AMB) | payer OTHER, SELFPAY ==
--- NOTE | 2023-08-08 12:20 | MHC.OFFWIV ---
Intake Vital Signs 08/08/23 12:21 Height 5 ft 2 in Weight 150 lb BMI 27.4 BP 110/62 Blood Pressure Location Lt brachial Position Sitting Pulse 75 Pulse Source Pulse Oximeter Temp 97.9 F Temp Source Oral Pulse Oximetry (%) 98 Oxygen Delivery Method Room Air Intake Visit Reasons: EP Headache from fall last week Intake Note: pt is here for co fall face first last week on jul 28, and went to ED at [facility] and they stated she has a small brain bleed and she was given aspirin and states she still is having a headache. Patient Tobacco Use Status: Current everyday Tobacco user Allergies gluten [GLUTEN] Allergy (Mild, Verified 08/08/23 16:49) SWELLING, ABDOMINAL PAIN latex [LATEX] Allergy (Unknown, Verified 08/08/23 16:49) HIVES AND ITCHING Medication List - Last Reconciled 08/08/23 by Barrie Ludwig MD albuterol sulfate 90 mcg/actuation 2 puffs inhalation Q4-6H PRN 30 days aspirin 650 mg PO Q4-6H PRN cetirizine 10 mg PO DAILY PRN 30 days fluoxetine 60 mg (3 x 20 mg) PO DAILY 90 days nicotine (Nicoderm CQ) 1 patch transdermal DAILY omega-3 acid ethyl esters 1 cap PO BID 30 days Do you need a note to return to daycare/school/sports/work: Yes HPI EP Headache from fall last week HPI Details 38 yr old female presents to the office for a sick visit. Patient reports continuing headaches since her last ER visit. She proceeded to the ER after a hard fall at home. CT scan showed a small bleed. No intervention was needed. Discharged home and continues to have persisting headaches. Has not gone to work for two weeks and went in yesterday. 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 No nausea or vomiting. No double vision. PFSH Medical History PONV (postoperative nausea and vomiting) Upper respiratory tract infection High blood triglycerides Hx of seizure disorder Psoriasis Cutaneous lupus erythematosus Surgical History Hx of colonoscopy Hx of esophagogastroduodenoscopy History of foot surgery Hx of cholecystectomy Family History Father No problems noted. Mother No problems noted. Brother Depression Sister No problems noted. Sister No problems noted. Sister No problems noted. 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 [employer] Cognitive needs: No Hearing needs: No Vision needs: Yes Physical Exam Vital Signs: Last Vital Signs Temp 97.9 F 08/08/23 12:21 Pulse 75 08/08/23 12:21 BP 110/62 08/08/23 12:21 Pulse Ox 98 08/08/23 12:21 Oxygen Delivery Method Room Air 08/08/23 12:21 BMI result Body Mass Index 27.4 Const General: cooperative and healthy appearing Nutritional Appearance: well nourished Orientation/consciousness: patient oriented x3 Limitations: no limitations HEENT Head: Yes normal to inspection Eyes General: appearance normal, both eyes and all related structures Neck Neck: Yes normal visual inspection Chest Chest palpation & inspection: normal palpation of entire chest wall Resp Effort & Inspection: normal respiratory effort Skin Other: minimal infra orbital hematoma still present. Neuro General: patient oriented x3 Assessment & Plan Assessment & Plan (1) Headache: Code(s): R51.9 - Headache, unspecified Plan: Patient was advised to proceed to the ER. She may need repeat imaging. Coding Level of Care Code Est Pt Level 4 (97100) Diagnoses Headache R51.9
[2023-08-08 12:21] VITALS: BP 110/62; PULSE 75; TEMP 36.6; O2SAT 98; BMI 27.4
== END 2023-08-08 12:56 | disposition home or self-care (01) ==
PROVIDERS: PCP Nurse Practitioner Family; Visit Provider Internal Medicine
DX: R51.9 Headache, unspecified (principal)
CPT/HCPCS: 99214

== ENCOUNTER 2023-08-18 11:51 | Outpatient (AMB) | payer OTHER, SELFPAY ==
--- NOTE | 2023-08-18 11:55 | AM.OFFWIN_ITS ---
Intake Vital Signs 08/18/23 11:57 Height 5 ft 2 in Weight 147 lb BMI 26.9 BP 112/72 Blood Pressure Location Lt brachial Position Sitting Pulse 69 Pulse Source Pulse Oximeter Temp 97.7 F Temp Source Temporal Artery Scan Pulse Oximetry (%) 96 Oxygen Delivery Method Room Air Intake Visit Reasons: EP sore throat runny nose Intake Note: pt is here today for sore throat and runny nose started monday Patient Tobacco Use Status: Current everyday Tobacco user Allergies gluten [GLUTEN] Allergy (Mild, Verified 08/18/23 11:56) SWELLING, ABDOMINAL PAIN latex [LATEX] Allergy (Unknown, Verified 08/18/23 11:56) HIVES AND ITCHING Do you need a note to return to daycare/school/sports/work: No HPI HPI Comments History of Present Illness Details 38 y/o female patient who presents to [facility] in clinic with c/o runny nose and sore throat x 1 week. Denies any fevers, chills, nausea or vomiting. No recent sick contacts. [facility] Medical History PONV (postoperative nausea and vomiting) Upper respiratory tract infection High blood triglycerides Hx of seizure disorder Psoriasis Cutaneous lupus erythematosus Surgical History Hx of colonoscopy Hx of esophagogastroduodenoscopy History of foot surgery Hx of cholecystectomy Family History Father No problems noted. Mother No problems noted. Brother Depression Sister No problems noted. Sister No problems noted. Sister No problems noted. 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 [employer] Cognitive needs: No Hearing needs: No Vision needs: Yes Physical Exam Vital Signs: Last Vital Signs Temp 97.7 F 08/18/23 11:57 Pulse 69 08/18/23 11:57 BP 112/72 08/18/23 11:57 Pulse Ox 96 08/18/23 11:57 Oxygen Delivery Method Room Air 08/18/23 11:57 BMI result Body Mass Index 26.9 Const General: no acute distress and well developed HEENT Head: Yes normocephalic and Yes atraumatic Ears: external ears normal and TM's normal bilaterally General nose exam: Abnormal mucous membranes and turbinates present boggy and erythematous Face and sinus: Yes sinuses nontender and Yes other (Red rash plaques on face and cheeks. ) Mouth: moist mucous membranes Throat: Yes posterior oropharynx normal Resp Effort & Inspection: normal respiratory effort and able to speak in complete sentences Auscultation: clear to auscultation bilaterally, no crackles, no rales, no rhonchi and no wheezes Cardio Rate: regular rate Rhythm: regular rhythm Assessment & Plan Assessment & Plan (1) Upper respiratory tract infection: Code(s): J06.9 - Acute upper respiratory infection, unspecified Qualifiers: Pharyngitis/tonsillitis etiology: other specified organisms URI type: acute pharyngitis Qualified Code(s): J02.8 - Acute pharyngitis due to other specified organisms Plan: - Rest - Warm fluids with honey - OTC cold remedies - Acetaminophen for pain relief. Orders: Orders SARS-CoV2/FLU/RSV Today J06.9 - Acute upper respiratory infection, unspecified Medications: New uzfihujdftmtw-RO-ofcniawozin 5-10-100 mg/5 mL (Adult Robitussin Peak Cold M-S) 10 mL PO Q4H PRN 237 mL 0RF cold symptoms J06.9 - Acute upper respiratory infection, unspecified acetaminophen 1,000 mg (2 x 500 mg) PO Q6H PRN 30 caps 0RF fever J06.9 - Acute upper respiratory infection, unspecified Coding Level of Care Code Est Pt Level 3 (98757) Diagnoses Acute pharyngitis due to other specified organisms J02.8 Pharyngitis/tonsillitis etiology: other specified organisms URI type: acute pharyngitis Time Spent (min) 15
[2023-08-18 11:57] VITALS: BP 112/72; PULSE 69; TEMP 36.5; O2SAT 96; BMI 26.9
== END 2023-08-18 13:23 | disposition home or self-care (01) ==
PROVIDERS: PCP Nurse Practitioner Family; Visit Provider Nurse Practitioner Family
DX: J02.8 Acute pharyngitis due to other specified organisms (principal)
CPT/HCPCS: 99213

== ENCOUNTER 2023-08-18 12:43 | Outpatient (REF) | payer OTHER, SELFPAY ==
[2023-08-18 17:20] LABS: Influenza A PCR NEGATIVE (Negative); Influenza B PCR NEGATIVE (Negative); Resp Syncy Virus RNA Qual PCR NEGATIVE (Negative); SARS COV2 PCR INHOUSE NEGATIVE (Negative)
== END 2023-08-18 12:44 | disposition home or self-care (01) ==
LOC: HO.LAB 12:43
PROVIDERS: Visit Provider Nurse Practitioner Family
DX: Z11.52 Encounter for screening for COVID-19 (principal); Z20.822 Contact with and (suspected) exposure to COVID-19; J06.9 Acute upper respiratory infection, unspecified
CPT/HCPCS: 0241U

== ENCOUNTER 2023-08-25 09:39 | Outpatient (AMB) | payer OTHER, SELFPAY ==
--- NOTE | 2023-08-25 09:56 | AM.OFFWIN_ITS ---
Intake Vital Signs 08/25/23 09:57 Weight 145 lb BP 120/78 Blood Pressure Location Rt brachial Position Sitting Pulse 63 Pulse Source Pulse Oximeter Pulse Oximetry (%) 98 Oxygen Delivery Method Room Air Intake Visit Reasons: EST/eye irriation (lobby) Intake Note: Patient here for possible pink eye, pt states she noticed they were getting a little red yesterday and woke up this morning with discharge and sealed shut. Patient Tobacco Use Status: Current everyday Tobacco user Allergies gluten [GLUTEN] Allergy (Mild, Verified 08/25/23 09:59) SWELLING, ABDOMINAL PAIN latex [LATEX] Allergy (Unknown, Verified 08/25/23 09:59) HIVES AND ITCHING Do you need a note to return to daycare/school/sports/work: No HPI HPI Comments History of Present Illness Details 38 y/o female patient who presents to [facility] in clinic with c/o left eye itching and redness. She noticed her eye red yesterday and this morning woke up with left eye crusted. [facility] Medical History PONV (postoperative nausea and vomiting) Upper respiratory tract infection High blood triglycerides Hx of seizure disorder Psoriasis Cutaneous lupus erythematosus Surgical History Hx of colonoscopy Hx of esophagogastroduodenoscopy History of foot surgery Hx of cholecystectomy Family History Father No problems noted. Mother No problems noted. Brother Depression Sister No problems noted. Sister No problems noted. Sister No problems noted. 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 [employer] Cognitive needs: No Hearing needs: No Vision needs: Yes Review of Systems Const All systems reviewed & are unremarkable except as noted in HPI and below Physical Exam Vital Signs: Last Vital Signs Pulse 63 08/25/23 09:57 BP 120/78 08/25/23 09:57 Pulse Ox 98 08/25/23 09:57 Oxygen Delivery Method Room Air 08/25/23 09:57 Const General: comfortable and no acute distress Orientation/consciousness: patient oriented x3 Eyes Conjunctivae: conjunctival abnormal right conjunctival injection; without discharge, left conjunctival injection and discharge and diffuse Pupils: Equal, round and reactive pupils present EOM: EOMs intact bilaterally Neuro General: patient oriented x3 Cranial nerves: Yes Equal, round and reactive pupils present Assessment & Plan Assessment & Plan (1) Viral conjunctivitis of both eyes: Code(s): B30.9 - Viral conjunctivitis, unspecified Plan: - Keep eyes clean - Wash hands frequently - Do not touch face Medications: New ciprofloxacin HCl 0.3% put 1-2 drps in affected eye(s) every 2hr up to 8 times/day x2days; then 4 times/day x5days ophthalmic (eye) 5 mL 0RF B30.9 - Viral conjunctivitis, unspecified Coding Level of Care Code Est Pt Level 3 (74926) Diagnoses Viral conjunctivitis of both eyes B30.9 Time Spent (min) 15
[2023-08-25 09:57] VITALS: BP 120/78; PULSE 63; O2SAT 98
== END 2023-08-25 10:16 | disposition home or self-care (01) ==
PROVIDERS: PCP Nurse Practitioner Family; Visit Provider Nurse Practitioner Family
DX: B30.9 Viral conjunctivitis, unspecified (principal)
CPT/HCPCS: 99213

== ENCOUNTER 2023-10-13 08:49 | Outpatient (REF) | payer OTHER, SELFPAY ==
--- NOTE | ~2023-10-13 | CT_ITS ---
EXAMINATION: CT head/brain wo IV con CLINICAL INFORMATION: Reason for Exam S06.5XAA - Traumatic subdural hemorrhage with loss of consciousness stat... COMPARISON: Reported outside head CT is not available at this time. TECHNIQUE: Contiguous axial imaging was performed from the skull base to vertex without intravenous contrast. Sagittal and coronal reformatted images were obtained. This CT examination was performed using dose optimization techniques as appropriate, variously including the following: * Automated exposure control * Adjustment of mA and/or kV according to patient size (this includes techniques or standardized protocols for targeted exams where dose is matched to indication/reason for exam; i.e. extremities or head) Use of iterative reconstruction technique DLP: 704 mGy-cm FINDINGS: There is no evidence of acute intracranial hemorrhage. No mass-effect or ventricular shift is noted. No acute, territorial loss of lea-white differentiation. The ventricles and sulci are appropriate in size and configuration for the patient's stated age. No depressed calvarial fracture. Right middle turbinate sanjuana bullosa. The paranasal sinuses are essentially clear. Underpneumatized mastoid tips. Partial opacification of the right mastoid tip. CT/CT head/brain wo IV con IMPRESSION: No acute intracranial hemorrhage is visualized. No mass effect or midline shift. Please note, reported prior CT head is not available at the time of dictation.
== END 2023-10-13 08:50 | disposition home or self-care (01) ==
LOC: HO.CT 08:49
PROVIDERS: PCP Nurse Practitioner Family; Visit Provider Nurse Practitioner Family
DX: S06.5XAA Traumatic subdural hemorrhage with loss of consciousness status unknown, initial encounter (principal)
CPT/HCPCS: 70450

== ENCOUNTER 2023-12-12 08:45 | Outpatient (REF) | payer OTHER, SELFPAY ==
--- NOTE | ~2023-12-12 | US_ITS ---
EXAMINATION: US THYROID CLINICAL INFORMATION: Nontoxic single thyroid nodule. COMPARISON: None available. TECHNIQUE: Linear transducer grayscale and color Doppler examination with attention to the region of the thyroid. FINDINGS: SIZE: Measurements of the thyroid lobes and nodules are given in sagittal, anteroposterior and transverse dimensions respectively. Right Thyroid Lobe: 4.8 x 2.0 x 1.3 cm, volume 6.1 mL. Parenchyma: The gland echotexture is homogeneous. Thyroid vascularity is normal. Left Thyroid Lobe: 4.8 x 1.3 x 1.6 cm, volume 5.1 mL. Parenchyma: The gland echotexture is homogeneous. Thyroid vascularity is normal. Isthmus: 0.3 cm in maximum AP dimension. No focal thyroid nodule is seen. NODES: No lymphadenopathy is seen in the tissue surrounding the thyroid gland. US/US thyroid IMPRESSION: No suspicious thyroid nodules. ACR TI-RADS RECOMMENDATION REFERENCE: Ultrasound-guided fine-needle aspiration, followup ultrasound, no further follow up. * TR1 (0 point) and TR2 (2 points): No FNA or follow up. * TR3 (3 points): FNA if more than or equal to 2.5 cm in maximum dimension, followup ultrasound in 1, 3 and 5 years if 1.5 to 2.4 cm in maximum dimension. * TR4 (4-6 points): FNA if more than or equal to 1.5 cm in maximum dimension, followup ultrasound in 1, 2, 3 and 5 years if 1 to 1.4 cm in maximum dimension. * TR5 (more than or equal to 7 points): FNA if more than or equal to 1 cm in maximum dimension, followup ultrasound every year for 5 years if 0.5 to 0.9 cm in maximum dimension. * TR3, TR4 or TR5 nodules that are below the size threshold for followup receive no follow up.
[2023-12-12 10:15] LABS: MANUAL DIFF FLAG NO
[2023-12-12 10:27] LABS: Basophils Percent Auto 0.4 % (0-2); Eosinophils Absolute Auto 0.1 X10*3/uL (0.0-0.4); Eosinophils Percent Auto 0.7 % (0-4); Hematocrit 36.8 % (37.0-47.0); Hemoglobin 12.2 g/dl (12.0-16.0); Imm Gran Abs Auto 0.04 X10*3/uL (0.00-0.03); Imm Gran Pct Auto 0.5 % (0.0-0.4); Lymphocytes Absolute Auto 1.7 X10*3/uL (1.2-4.9); Lymphocytes Percent Auto 23.2 % (20-40); Mean Corpuscular HGB Conc 33.2 g/dl (31.0-35.0); Mean Corpuscular Hemoglobin 30.4 pg (27.0-33.0); Mean Corpuscular Volume 91.8 fL (80.0-98.0); Mean Platelet Volume 10.8 fL (9.4-12.3); Monocytes Absolute Auto 0.3 X10*3/uL (0.1-1.2); Monocytes Percent Auto 4.2 % (2-11); Neutrophils Absolute Auto 5.3 x10*3/uL (2.0-8.3); Platelet Count 232 X10*3/uL (160-400); Red Blood Count 4.01 X10*6/uL (4.20-5.50); Red Cell Distribution Width 13.9 % (11.0-16.0); White Blood Count 7.4 X10*3/uL (4.8-10.8)
[2023-12-12 10:32] LABS: Appearance Urine Cloudy; Color Urine Yellow; Glucose Urine UA Negative (Negative); Leukocyte Esterase Urine Large (3+) (Negative); Nitrite Urine Negative (Negative); PH 6.5 (5.0-9.0); UMIC TRIGGER UACC YES; Urine Blood Moderate (2+) (Negative); Urine Ketones Negative (Negative); Urine Protein Negative (Neg-Trace)
[2023-12-12 10:38] LABS: Bacteria Urine 2+ (None Seen); Hyaline Casts Urine 0-2 /LPF (0-2); UACC Culture Trigger YES; WBC Urine >50 /HPF (0-5)
[2023-12-12 11:03] LABS: Alanine Aminotransferase 13 U/L (0-31); Albumin Level 4.2 g/dL (3.5-5.0); Alkaline Phosphatase 40 U/L (39-117); Anion Gap 12 (12-20); Aspartate Amino Transferase 15 U/L (5-31); Bilirubin Total 0.4 mg/dL (0.0-1.0); Blood Urea Nitrogen 17 mg/dL (9-16); Calcium 8.6 mg/dL (8.4-10.2); Carbon Dioxide 24 mmol/L (22-29); Chloride 108 mmol/L (96-108); Estimated Glomerular Filt Rate > 60; Glucose Fasting 91 mg/dL (60-99); Potassium 4.2 mmol/L (3.3-5.1); Sodium 140 mmol/L (135-145); Total Protein 6.8 g/dL (6.5-8.0)
[2023-12-12 11:09] LABS: TSH reflex Free T4 0.59 uIU/mL (0.32-4.0)
== END 2023-12-12 08:46 | disposition home or self-care (01) ==
LOC: HO.HMGCX 08:45
PROVIDERS: PCP Nurse Practitioner Family; Visit Provider Nurse Practitioner Family
DX: I95.9 Hypotension, unspecified (principal); S06.5XAA Traumatic subdural hemorrhage with loss of consciousness status unknown, initial encounter; E04.1 Nontoxic single thyroid nodule
CPT/HCPCS: 36415; 76536; 80053; 81001; 84443; 85025; 87086; 87147

== ENCOUNTER 2023-12-22 09:46 | Outpatient (REF) | payer OTHER, SELFPAY ==
[2023-12-22 11:19] LABS: Appearance Urine Clear; Color Urine Yellow; Glucose Urine UA Negative (Negative); Leukocyte Esterase Urine Negative (Negative); Nitrite Urine Negative (Negative); Specific Gravity - Urine 1.015 (1.005-1.025); Urine Blood Negative (Negative); Urine Ketones Negative (Negative); Urine Protein Negative (Neg-Trace)
== END 2023-12-22 09:47 | disposition home or self-care (01) ==
LOC: HO.HMGCLDS 09:46
PROVIDERS: PCP Nurse Practitioner Family; Visit Provider Nurse Practitioner Family
DX: I95.9 Hypotension, unspecified (principal); S06.5XAA Traumatic subdural hemorrhage with loss of consciousness status unknown, initial encounter; S09.90XA Unspecified injury of head, initial encounter
CPT/HCPCS: 81003

== ENCOUNTER 2024-03-20 09:05 | Outpatient (REF) | payer OTHER, SELFPAY ==
[2024-03-20 09:24] LABS: MANUAL DIFF FLAG NO
[2024-03-20 10:07] LABS: Basophils Percent Auto 0.6 % (0-2); Eosinophils Absolute Auto 0.1 X10*3/uL (0.0-0.4); Eosinophils Percent Auto 1.7 % (0-4); Hematocrit 39.8 % (37.0-47.0); Hemoglobin 13.4 g/dl (12.0-16.0); Imm Gran Abs Auto 0.01 X10*3/uL (0.00-0.03); Imm Gran Pct Auto 0.2 % (0.0-0.4); Lymphocytes Absolute Auto 1.8 X10*3/uL (1.2-4.9); Lymphocytes Percent Auto 33.9 % (20-40); Mean Corpuscular HGB Conc 33.7 g/dl (31.0-35.0); Mean Corpuscular Hemoglobin 30.7 pg (27.0-33.0); Mean Corpuscular Volume 91.3 fL (80.0-98.0); Mean Platelet Volume 10.6 fL (9.4-12.3); Monocytes Absolute Auto 0.3 X10*3/uL (0.1-1.2); Monocytes Percent Auto 6.1 % (2-11); Neutrophils Percent Auto 57.5 % (45-73); Platelet Count 222 X10*3/uL (160-400); Red Blood Count 4.36 X10*6/uL (4.20-5.50); Red Cell Distribution Width 13.9 % (11.0-16.0); White Blood Count 5.3 X10*3/uL (4.8-10.8)
[2024-03-20 10:50] LABS: Alanine Aminotransferase 17 U/L (0-31); Albumin Level 4.6 g/dL (3.5-5.0); Alkaline Phosphatase 34 U/L (39-117); Anion Gap 9 (12-20); Aspartate Amino Transferase 17 U/L (5-31); Bilirubin Total 0.6 mg/dL (0.0-1.0); Blood Urea Nitrogen 16 mg/dL (9-16); C Reactive Protein < 0.04 mg/dL (< or = 0.50); Calcium 9.7 mg/dL (8.4-10.2); Carbon Dioxide 28 mmol/L (22-29); Chloride 104 mmol/L (96-108); Estimated Glomerular Filt Rate > 60; Glucose Random 82 mg/dL (60-115); Sodium 137 mmol/L (135-145); Total Protein 7.3 g/dL (6.5-8.0)
[2024-03-20 11:06] LABS: Folate 7.1 ng/mL (> or = 4.0); Vitamin B12 478 pg/mL (200-900)
[2024-03-20 11:07] LABS: Ferritin 29 ng/mL (10-122); TSH reflex Free T4 0.69 uIU/mL (0.32-4.0)
[2024-03-21 10:44] LABS: IgA 134 mg/dL (47-310); IgG 991 mg/dL (600-1640); IgM 81 mg/dL (50-300)
[2024-03-21 20:08] LABS: Myeloperoxidase Antibody <1.0 AI; Proteinase 3 PR3 Antibodies <1.0 AI
[2024-03-21 21:34] LABS: Immunoglobulin E 4 kU/L (<OR=114)
[2024-03-21 22:08] LABS: Transglutaminase Ab IgG <1.0 U/mL
[2024-03-22 11:14] LABS: Anti Nuclear Antibody Screen NEGATIVE (NEGATIVE)
[2024-03-23 01:39] LABS: Zinc 80 mcg/dL (60-130)
[2024-03-24 06:53] LABS: Angiotensin Converting Enzyme 36.6 U/L (9-67)
[2024-03-25 16:08] LABS: Immunoglobulin G Subclass 1 463 mg/dL (382-929); Immunoglobulin G Subclass 2 262 mg/dL (241-700); Immunoglobulin G Subclass 3 56 mg/dL (22-178); Immunoglobulin G Subclass 4 48.4 mg/dL (4-86); Immunoglobulin G Total 872 mg/dL (600-1640)
== END 2024-03-20 09:06 | disposition home or self-care (01) ==
LOC: HO.LAB 09:05
PROVIDERS: PCP Nurse Practitioner Family; Visit Provider Internal Medicine Gastroenterology
DX: R10.9 Unspecified abdominal pain (principal); L93.2 Other local lupus erythematosus; K75.81 Nonalcoholic steatohepatitis (NASH); R10.33 Periumbilical pain; G89.29 Other chronic pain; R79.82 Elevated C-reactive protein (CRP)
CPT/HCPCS: 36415; 80053; 82164; 82550; 82607; 82728; 82746; 82784; 82785; 83735; 84443; 84630; 85025; 86021; 86038; 86140; 86364

== ENCOUNTER 2024-03-26 09:00 | Outpatient (AMB) | payer OTHER, SELFPAY ==
--- NOTE | 2024-03-26 09:04 | A.OFFPC_ITS ---
Vital Signs 03/26/24 09:05 Height 5 ft 2 in Weight 152 lb 6 oz BMI 27.9 BP 112/70 Blood Pressure Location Rt brachial Position Sitting Pulse 72 Pulse Source Pulse Oximeter Pulse Oximetry (%) 97 Intake Visit Reasons: Annual PE Intake Note: pt is here for annual exam Allergies gluten [GLUTEN] Allergy (Mild, Verified 03/26/24 09:21) SWELLING, ABDOMINAL PAIN latex [LATEX] Allergy (Unknown, Verified 03/26/24 09:21) HIVES AND ITCHING Medication List - Last Reconciled 03/26/24 by SAMUEL Cruz acetaminophen 1,000 mg (2 x 500 mg) PO Q6H PRN albuterol sulfate 90 mcg/actuation 2 puffs inhalation Q4-6H PRN 30 days aspirin 650 mg PO Q4-6H PRN cetirizine 10 mg PO DAILY PRN 30 days fluoxetine 60 mg (3 x 20 mg) PO DAILY 90 days nicotine (Nicoderm CQ) 1 patch transdermal DAILY Tobacco use date assessed: 08/02/23 Dental Screening Dental Screen Date: 08/02/23 HPI Annual PE HPI Details Pt is here for a PE. Labs were performed recently and were WNL. Has a portuguese tutor. Pt follows up with GI. Highly encouraged pt to follow up with rheumatology and derm. Pt reports that she quit drinking alcohol 8 months ago. will send patches for tobacco use PFS Medical History PONV (postoperative nausea and vomiting) Upper respiratory tract infection High blood triglycerides Hx of seizure disorder Psoriasis Cutaneous lupus erythematosus Surgical History Hx of colonoscopy Hx of esophagogastroduodenoscopy History of foot surgery Hx of cholecystectomy Family History Father No problems noted. Mother No problems noted. Brother Depression Sister No problems noted. Sister No problems noted. Sister No problems noted. Social History Household Members Other:: 2 kids Housing: House Are you a primary student career development specialist to a significant other at home: No Do you presently have visiting nurse or other home services: No Alcohol intake: current Alcohol intake frequency: a few times a month Alcohol type: wine and hard liquor Patient Tobacco Use Status: Current everyday Tobacco user Tobacco use type: Cigarette Cigarettes Per Day: 8 e-Cigarette/Vaping Use: Never Used Current occupational status: employed Current occupation: [employer] Cognitive needs: No Hearing needs: No Vision needs: Yes Questionnaire PHQ-9 Over the last 2 weeks, how often have you been bothered by any of the following problems? 1. Little interest or pleasure in doing things: not at all 2. Feeling down, depressed, or hopeless: not at all 3. Trouble falling or staying asleep, or sleeping too much: several days 4. Feeling tired or having little energy: several days 5. Poor appetite or overeating: several days 6. Feeling bad about yourself - or that you are a failure or have let yourself or your family down: not at all 7. Trouble concentrating on things, such as reading the newspaper or watching television: not at all 8. Moving or speaking so slowly that other people could have noticed. Or the opposite - being so fidgety or restless that you have been moving around a lot more than usual: not at all 9. Thoughts that you would be better off or of hurting yourself in some way: not at all Total score: 3 Depression Screening Interpretation: Negative Depression Screening Done: Yes 64672 - PHQ-9 Billing: Yes Source: Developed by Drs. Brent Orosco, Suzy Rendon, Ruben Cramer and colleagues, with an educational marcie from [employer]. Thrive Questionnaire Date Thrive assessed: 03/26/24 I am a: Patient What is your living situation today?: I have a steady place to live Within the past 12 months, did the food you bought not last and you didn't have the money to get more?: Never true Within the past 12 months, did you worry whether your food would run out before you got money to buy more?: Never true Do you have trouble paying for medicines?: No Do you have trouble getting transportation to medical appointments?: No Do you have trouble paying your heating and electricity bill?: No Do you have trouble taking care of your child, family member or friend?: No Do you have trouble with day-to-day activities such as bathing, preparing meals, shopping, managing finances, etc.?: No Are you interested in more education?: I choose not to answer this question Please select the resources that you would like help with: None Currently or been in a relationship where the following occur: No concerns reported THRIVE Score: 0 AUDIT C Alcohol Use Questionnaire (AUDIT-C) 1. How often do you have a drink containing alcohol?: Never 3. How often do you have six or more drinks on one occasion?: Never Total Score: 0 Score Reviewed/Action Taken: Yes PASTOR-7 AMB Questionnaire PASTOR-7 Date PASTOR - 7 assessed: 03/26/24 Feeling nervous, anxious, or on edge: 0 = Not at all Not being able to stop or control worryin = Not at all Worrying too much about different things: 0 = Not at all Trouble relaxin = Not at all Being so restless that it is hard to sit still: 0 = Not at all Becoming easily annoyed or irritable: 0 = Not at all Feeling afraid as if something awful might happen: 0 = Not at all Total PASTOR-7 score (0-4 normal; 5-9 mild; 10-14 moderate; 15-21 severe): 0 Source: Developed by Drs. Brent Orosco, Suzy Rendon, Ruben Cramer and colleagues, with an educational marcie from [employer]. PASTOR-7 Assessment Billing PASTOR-7 Assessment Tool: PASTOR-7 Assessment 13468 Review of Systems Const Denies chills and Denies fever(s) Eyes Denies blurry vision ENT Denies vertigo, Denies dizziness and Denies sore throat Card Denies chest pain at rest, Denies chest pain with activity, Denies diaphoresis, Denies dyspnea and Denies dyspnea on exertion Resp Denies cough, Denies dyspnea, Denies dyspnea on exertion and Denies wheezing GI Denies abdominal pain, Denies melena, Denies hematochezia, Denies constipation, Denies diarrhea and Denies loose stools Denies hematuria Musc Denies numbness and Denies tingling Skin/Breast Denies lesions Neuro Denies vertigo, Denies dizziness, Denies numbness and Denies tingling Psych Denies anxiety, Denies depression, Denies homicidal ideation, Denies suicidal ideation and Denies other (substance abuse) Aller/Immun Denies wheezing Physical exam (Primary Care) Vital Signs: Last Vital Signs Pulse 72 03/26/24 09:05 BP 112/70 03/26/24 09:05 Pulse Ox 97 03/26/24 09:05 BMI result Body Mass Index 27.9 Tobacco/Smoking Status: Tobacco use Status Tobacco use date assessed 08/02/23 03/26/24 09:04 Patient Tobacco Use Status Current everyday Tobacco 03/26/24 09:04 Tobacco use type Cigarette 03/26/24 09:04 e-Cigarette/Vaping Use Never Used 03/26/24 09:04 PHQ-9: PHQ-9 Score PHQ-9: Total score 3 03/26/24 09:22 Depression Screening Interpretation: Negative Thrive Assessment: Date of Thrive Assessment Date Thrive assessed 03/26/24 03/26/24 09:08 Currently or been in a relationship where the following occur: No concerns reported Const General: cooperative Nutritional Appearance: well nourished Orientation/consciousness: patient oriented x3 HENMT Head: Yes normal to inspection, Yes normocephalic and Yes atraumatic Ears: TM's normal bilaterally Eyes General: appearance normal, both eyes and all related structures Alignment and Position: alignment normal and position normal Neck Neck: Yes normal visual inspection, Yes no lymphadenopathy and Yes supple Resp Effort & Inspection: normal respiratory effort Auscultation: clear to auscultation bilaterally Cardio Rate: regular rate Rhythm: regular rhythm Heart sounds: S1 normal heart sound present, S2 normal heart sound present and no murmurs GI Palpation (GI): Soft to palpation and nontender Auscultation: normal bowel sounds Skin Other: macular erythema to bilat facial cheeks. similar appearance to bilat upper extrem, upper chest Neuro General: patient oriented x3, moves all extremities, no focal motor deficits and deep tendon reflexes 2+ bilaterally Romberg Test: Negative Psych Appearance: grossly normal Mental Status: mental status grossly normal Speech and movement: Normal speech and movement present Affect: normal affect Attitude: cooperative Thought process: Normal thought process present Thought content: Normal thought content present Insight: Good insight present (Psych) Judgement: Good judgement present (Psych) Coding Level of Care Code Est Pt Prev Care 18-39y(31542) Diagnoses Physical exam Z00.00 Cutaneous lupus erythematosus L93.2 Smoker F17.200 Additional Codes PASTOR-7 Assessment Billing - PASTOR-7 Assessment Tool: PASTOR-7 Assessment [id number] ([id number]) Assessment & Plan Assessment & Plan (1) Physical exam: Code(s): Z00.00 - Encounter for general adult medical examination without abnormal findings Category: Medical Plan: Labs already performed (2) Cutaneous lupus erythematosus: Code(s): L93.2 - Other local lupus erythematosus Category: Medical (3) Smoker: Code(s): F17.200 - Nicotine dependence, unspecified, uncomplicated Category: Social Hx Plan: Nicotine patches sent Plan The patient agreed to the use of a registered medical assistant for this encounter. Scribed f or SAMUEL Rayo by Erika Osman registered medical assistant, on 03/26/2024 at 09:20 EST. Medications: New nicotine (Nicoderm CQ) 1 patch transdermal DAILY 28 ea 0RF Discontinued nicotine (Nicoderm CQ) Discontinued Reason: Doctor's Order 1 patch transdermal DAILY 28 ea 0RF
[2024-03-26 09:05] VITALS: BP 112/70; PULSE 72; O2SAT 97; BMI 27.9
== END 2024-03-26 09:30 | disposition home or self-care (01) ==
PROVIDERS: PCP Nurse Practitioner Family; Visit Provider Nurse Practitioner Family
DX: Z00.00 Encounter for general adult medical examination without abnormal findings (principal); L93.2 Other local lupus erythematosus; F17.200 Nicotine dependence, unspecified, uncomplicated

== ENCOUNTER → 2024-03-26 09:00 | Outpatient (BNVA) | payer OTHER, SELFPAY | PROVIDERS: PCP Nurse Practitioner Family; Visit Provider Nurse Practitioner Family | DX: Z00.01 Encounter for general adult medical examination with abnormal findings (principal); L93.2 Other local lupus erythematosus; F17.200 Nicotine dependence, unspecified, uncomplicated; Z71.6 Tobacco abuse counseling | CPT/HCPCS: 96127; 99395 ==

== ENCOUNTER 2024-04-23 09:35 | Outpatient (REF) | payer OTHER, SELFPAY ==
[2024-04-23] MEDS: iohexoL 350 MG/ML 100 ML INFUS..BTL IV (11:10)
[2024-04-23] MEDS: Sorbitol/Mannit/Xanth Imaging 500 ML LIQUID 1500 ML PO (11:12)
== END 2024-04-23 09:36 | disposition home or self-care (01) ==
LOC: HO.CT 09:35
PROVIDERS: PCP Nurse Practitioner Family; Visit Provider Internal Medicine Gastroenterology
DX: L93.2 Other local lupus erythematosus (principal); R10.33 Periumbilical pain
CPT/HCPCS: 74177; Q9967

== ENCOUNTER → 2024-04-23 09:37 | Outpatient (BNV) | payer OTHER, SELFPAY | PROVIDERS: PCP Nurse Practitioner Family; Visit Provider Radiology Diagnostic Radiology | DX: R10.33 Periumbilical pain (principal) | CPT/HCPCS: 74177 ==

== ENCOUNTER 2024-07-26 10:47 | Outpatient (AMB) | payer OTHER, SELFPAY ==
--- NOTE | 2024-07-26 10:49 | A.OFFVIS_ITS ---
Vital Signs 07/26/24 10:52 Height 5 ft 2 in Weight 154 lb 5.177 oz BMI 28.2 BP 102/54 L Blood Pressure Location Lt brachial Position Sitting Pulse 65 Intake Visit Reasons: Abdominal pain (pedi) Intake Note: Isabela presents in the office as a follow up for abdominal pains. CC: She states a year ago she fell and caused herself to break her nose and had a brain bleed. She was kept for a few days. She states that she has stopped drinking. She states that if she does not take her medications she will have instant symptoms but when she is taking medications she is okay. Automotive Services Manager Required: No Allergies gluten [GLUTEN] Allergy (Mild, Verified 07/26/24 10:53) SWELLING, ABDOMINAL PAIN latex [LATEX] Allergy (Unknown, Verified 07/26/24 10:53) HIVES AND ITCHING HPI HPI Abdominal pain (pedi): Details: 39 yr old f w/ hx of possible cutaneous lupus (has had biopsies but not conclusive), psoriasis, raynauds here for f/u RECAP Originally I had seen her 2021 She had been having rectal bleeding for 6 months with RLQ pain blood mixed and on wiping EGD/colo:2022 gastritis, and small int hemorrhoids bx with IEL in duodenum CTe 2023 subacute inflammatory changes in the jejunal ileal without intestinal obstruction pattern. Patulous nondistended left hemicolon. Horseshoe kidney. Probable uterine fibroids. INTERIM: I Started her on pentasa due to findings above, she feels 95% improvement she can eat more helps with the pain bowels have been solid overall she feels happy EXAM: GENERAL: The patient is well developed and nontoxic. VITAL SIGNS:see workflow HEENT: Nonicteric sclerae, PERRLA, EOMI. Oropharynx clear. Moist mucous membranes. Conjunctivae appear well perfused. No thyroid mass. CHEST: Chest wall is nontender. HEART: Regular rate and rhythm without murmurs. LUNGS: Clear to auscultation bilaterally. ABDOMEN: Soft, positive bowel sounds, nontender, no organomegaly.no flank tender ness SKIN: livedo reticularis rash on arms, butterfly rash on face with scaly rash around cheeks and tip of nose NEUROLOGIC: Cranial nerves II-XII intact without motor/sensory deficit. Psych: normal A/P: 1/ Possible small bowel crohns, on pentasa with good clinical results, neg TTG x 2 in past PLAN: 1/ cont pentasa, 2/ MRe in 3 months 3/ check baseline fecal lactoferrin PFSH Medical History PONV (postoperative nausea and vomiting) Upper respiratory tract infection High blood triglycerides Hx of seizure disorder Psoriasis Cutaneous lupus erythematosus Surgical History Hx of colonoscopy Hx of esophagogastroduodenoscopy History of foot surgery Hx of cholecystectomy Family History Father No problems noted. Mother No problems noted. Brother Depression Sister No problems noted. Sister No problems noted. Sister No problems noted. 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 Today K51.50 - Left sided colitis without complications MR abdomen wo/w con 3 Months K52.9 - Noninfective gastroenteritis and colitis, unspecified Coding Level of Care Code Est Pt Level 3 (36175) Diagnoses Enteritis K52.9
[2024-07-26 10:52] VITALS: BP 102/54; PULSE 65; BMI 28.2
--- OUTSIDE RECORDS SUMMARY | 2024-07-26 11:30 | XMS_ITS | Referral Summary ---
Author Organization [facility] Address [address] [place] [address] Care Team Providers Care Director Of Psychiatry Name Role Phone Shayne Mejía Primary Care Provider Allergies Active Allergy Reactions Criticality Noted Date Comments Latex Itching,Rash 05/17/2021 RASH OR WELT Medications FLUoxetine (PROzac) 20 mg capsule Take 60 mg by mouth once a day. 1 Active FLUoxetine (PROzac) 40 mg capsule Take 40 mg by mouth once a day. 1 Active omega-3 acid ethyl esters (LOVAZA) 1 gram capsule 1 Active predniSONE (DELTASONE) 10 mg tabletIndicatio ns:Rash Take 6 pills(60 mg) x3 days, then 5 pills (50 mg) x3 days then 4 pills (40 mg) x 3 days then 3 pills (30 mg) x3 days then 2 pills (20 mg) x3 days and then 1 pill (10 mg ) x3 day in the am 63 tablet 2 Active tacrolimus (PROTOPIC) 0.1 % ointmentIndicat ions:Rash Apply to affected areas on face twice a day 100 g 1 2 Active hydrocortisone 2.5% ointment APPLY TWICE DAILY ON THE AFFECTED AREAS ON FACE, THEN USE ONCE DAILY IN THE MORNING AND USE TACROLIMUS IN THE EVENING FOR 1 WEEK , THEN TACROLIMUS OINTMENT TWICE A DAY UNTIL RESOLVED 28.35 g 3 2 Active triamcinolone acetonide (KENALOG) 0.1% ointment APPLY TOPICALLY TO AFFECTED AREAS ON BODY TWICE DAILY, AND TAPER DIRECTED. AVOID FACE, ARMPITS, OR GROIN. 465 g 3 Active Active Problems Problem Noted Date Diagnosed Date Injected eye 08/28/2021 Rash 08/28/2021 Polyarthralgia 05/18/2021 Acute systemic lupus erythematosus (CMS/HCC) 06/2020 Depression 04/26/2021 Encounter for test, result negative Frequency of micturition 09/09/2019 Dysuria 09/08/2019 Social History Tobacco Use Types Packs/Day Years Used Date Smoking Tobacco: Some Days Smokeless Tobacco: Never Alcohol Use Standard Drinks/Week Comments Yes 0 (1 standard drink = 0.6 oz pur e alcohol) Comments Unknown Sex and Gender Information Value Date Recorded Sex Assigned at Not on file Legal Sex Female 9:04 AM EDT Gender Identity Not on file Sexual Orientation Not on file Last Filed Vital Signs Vital Sign Reading Time Taken Comments Blood Pressure 126/80 08/27/2021 10:32 AM EST Pulse 76 08/27/2021 10:32 AM EST Temperature 36.4 ??C (97.6 ??F) 05/17/2021 2:28 PM ES T Respiratory Rate - - Oxygen Saturation - - Inhaled Oxygen Concentration - - Weight 79.8 kg (176 lb) 05/17/2021 2:28 PM EST Height - - Body Mass Index - - Plan of Treatment Not on file Insurance [employer] Care Teams Director Of Psychiatry Relationship Specialty Start Date End Date Shayne Mejía [address] [place] [address] [facility] - General 02/22/21
--- OUTSIDE RECORDS SUMMARY | 2024-07-26 11:30 | XMS_ITS | Encounter Summary ---
Author Organization [facility] Address [address] [place] [address] Care Team Providers Care Lining Feller Name Role Phone Shayne Mejía Primary Care Provider [phone] Reason for Visit * Reason Onset Date Comments Rash 07/05/2021 Biopsy 07/26/2021 Encounter Details Date Type Department Care Team (Late st Contact Info) Description 07/05/2021 Telephone [facility] Central Scheduling Department [address] [place] [phone] Telephone Intake, Staff Rash; Biopsy Social History Tobacco Use Types Packs/Day Years Used Date Smoking Tobacco: Some Days Smokeless Tobacco: Never Alcohol Use Standard Drinks/Week Comments Yes 0 (1 standard drink = 0.6 oz pur e alcohol) Comments Unknown Sex and Gender Information Value Date Recorded Sex Assigned at Not on file Legal Sex Female 9:04 AM EDT Gender Identity Not on file Sexual Orientation Not on file documented as of this encounter Miscellaneous Notes * Telephone Encounter - Janet Maki - 07/29/2021 11:39 AM EST Patient has been scheduled and added to waitlist * Telephone Encounter - Rosa Riojas - 07/26/2021 9:41 AM EST Pt looking to schedule biopsy with and would like an appointment to just be made and tojust call her to let her know when and what time to avoid playing phone tag. [phone] * Telephone Encounter - Sydnee Herreraorly - 07/05/2021 9:30 AM EST Derm DT, rescheduling re rash,blisters on skin, sores in mouth Pt missed appt 06/[address] Christian Chanel due to Covid Per DT, schedule within 1 wk--none available Left [place] msg at ext [phone] Informed pt will receive a call back within next few business days documented in this encounter Plan of Treatment Not on file documented as of this encounter Visit Diagnoses Not on filedocumented in this encounter Care Teams Lining Feller Relationship Specialty Start Date End Date Shayne Mejía [address] [place] [address] PCP - General 02/22/21 documented as of this encounter
--- OUTSIDE RECORDS SUMMARY | 2024-07-26 11:30 | XMS_ITS | Clinical Summary ---
Author Organization [facility] Address [address] [place] [address] Care Team Providers Care Multi Skilled Operator Name Role Phone Shayne Mejía Primary Care [...] FACE, ARMPITS, OR GROIN. 465 g 3 2 Active Active Problems Problem Noted Date Diagnosed Date Injected eye 08/28/2021 Rash 08/28/2021 Polyarthralgia 05/18/2021 Acute systemic lupus erythematosus (CMS/HCC) 06/2020 Depression 04/26/2021 Encounter for test, result negative Frequency of micturition 09/09/2019 Dysuria 09/08/2019 Family History Medical History Relation Name Comments Depression Brother Depression Sister Relation Name Status Comments Brother Sister Social History Tobacco Use Types Packs/Day Years [...] Mass Index - - Plan of Treatment Health Maintenance Due Date Last Done Comments Cervical Cancer Screening 1985 HIV Screening 1985 HPV and Pap Smear 1985 Hepatitis C Screening 1985 Pap Smear 1985 Pneumococcal Vaccine: Pediat donald (0-5 Years) and At-Risk Patients (6-64 Years) (1 of 2 - PCV) 1991 Varicella Vaccines (1 of 2 - 13+ 2-dose series) 1998 Hepatitis B Vaccines (1 of 3 - 19+ 3-dose series) 2004 COVID-19 Vaccine (3 - 2023- season) 2024, 11/22/2020 Influenza Vaccine (#1) 2024 04/02/2019, 2017 Alcohol/Substance Use Screening 06/26/2024 Depression Evaluation 06/26/2024 Social Drivers of Health Annual Screening 06/26/2024 DTaP,Tdap,and Td Vaccines (3 - Td or Tdap) 07/26/2028 07/26/2018, 10/22/2015 RSV Vaccine (60+ years old a nd patients) (1 - 1-dose 75+ series) 2060 Insurance [employer] Care Teams Multi Skilled Operator Relationship Specialty Start Date End Date Shayne Mejía [address] [place], [place] [phone] PCP - General 02/22/21
== END 2024-07-26 12:24 | disposition home or self-care (01) ==
PROVIDERS: PCP Nurse Practitioner Family; Visit Provider Internal Medicine Gastroenterology
DX: K52.9 Noninfective gastroenteritis and colitis, unspecified (principal)
CPT/HCPCS: 99213

== ENCOUNTER → 2024-07-26 10:47 | Outpatient (BNVA) | payer OTHER, SELFPAY | PROVIDERS: PCP Nurse Practitioner Family; Visit Provider Internal Medicine Gastroenterology | DX: K52.9 Noninfective gastroenteritis and colitis, unspecified (principal) | CPT/HCPCS: 99212 ==

== ENCOUNTER 2024-09-24 08:58 | Outpatient (REF) | payer OTHER, SELFPAY ==
--- NOTE | ~2024-09-24 | XR_ITS ---
EXAMINATION: XR FINGERS RIGHT HISTORY: S69.91XA - Unspecified injury of right wrist, hand and finger(s), initial... COMPARISON: Bonifacio is made with the prior examination of the right hand dated 01/31/2017. FINDINGS: Three views of the right 5th finger are submitted. Osseous mineralization is normal. There is no fracture or dislocation. The joint spaces are preserved. The soft tissues are unremarkable. XR/XR finger RT min 2V IMPRESSION: No evidence of fracture of the right 5th finger. Electronically signed by: Brent Ashton MD 09/24/2024 02:17 PM EDT
--- OUTSIDE RECORDS SUMMARY | 2024-09-24 10:56 | XMS_ITS | Referral Summary ---
Author Organization [facility] Address [address] [place] [address] Care Team Providers Care Operations Officer Name Role Phone Shayne Mejía Primary Care [...] Treatment Not on file Insurance [place] [address] Care Teams Operations Officer Relationship Specialty Start Date End Date Shayne Mejía [address] [place] [address] PCP - General 02/22/21
--- OUTSIDE RECORDS SUMMARY | 2024-09-24 10:56 | XMS_ITS | Encounter Summary ---
Author Organization [facility] Address [address] [place] [address] Care Team Providers Care Distribution Engineering Technologist Name Role Phone Shayne Mejía Primary Care Provider Reason for Visit * Reason Onset Date Comments Rash 07/05/2021 Biopsy 07/26/2021 Encounter Details Date Type Department Care Team (Late st Contact Info) Description 07/05/2021 Telephone [facility] Central Scheduling Department [address] [place] [address] Telephone Intake, Staff Rash; Biopsy Social History [...] what time to avoid playing phone tag. [phone] * Telephone Encounter - Sydnee Herreraorly - 07/05/2021 9:30 AM EST Derm DT, rescheduling re rash,blisters on skin, sores in mouth Pt missed appt 06/[address] Christian Chanel due to Covid Per DT, schedule within 1 wk--none available Left detailed vm msg at ext [phone] Informed pt will receive a call back within next few business days documented in this encounter Plan of Treatment Not on file documented as of this encounter Visit Diagnoses Not on filedocumented in this encounter Care Teams Distribution Engineering Technologist Relationship Specialty Start Date End Date Shayne Mejía [address] [place] [address] PCP - General 02/22/21 documented as of this encounter
--- OUTSIDE RECORDS SUMMARY | 2024-09-24 10:56 | XMS_ITS | Clinical Summary ---
Author Organization [facility] Address [address] [place] [address] Care Team Providers Care Fabric Awning Repairer Name Role Phone Shayne Mejía Primary Care [...] 1-dose 75+ series) 2060 [place] [address] Care Teams Fabric Awning Repairer Relationship Specialty Start Date End Date Shayne Mejía [address] [place], [place] [phone] PCP - General 02/22/21
== END 2024-09-24 08:59 | disposition home or self-care (01) ==
LOC: HO.HMGCX 08:58
PROVIDERS: PCP Nurse Practitioner Family; Visit Provider Nurse Practitioner Family
DX: Z00.01 Encounter for general adult medical examination with abnormal findings (principal); S69.91XA Unspecified injury of right wrist, hand and finger(s), initial encounter; X58.XXXA Exposure to other specified factors, initial encounter; Y93.9 Activity, unspecified; Y92.9 Unspecified place or not applicable; Y99.9 Unspecified external cause status
CPT/HCPCS: 73140; 96127; 99395

== ENCOUNTER 2024-09-24 08:58 | Outpatient (AMB) | payer OTHER, SELFPAY ==
--- NOTE | 2024-09-24 09:03 | MHC.PC.OV ---
Vital Signs 09/24/24 09:05 Height 5 ft 2 in Weight 153 lb BMI 28.0 BP 110/70 Blood Pressure Location Lt brachial Position Sitting Pulse 69 Pulse Source Pulse Oximeter Pulse Oximetry (%) 97 Oxygen Delivery Method Room Air Intake Visit Reasons: 6m follow up Home Theater Installer Required: No Accompanied by: Self / Same As Patient Allergies gluten [GLUTEN] Allergy (Mild, Verified 09/24/24 09:20) SWELLING, ABDOMINAL PAIN latex [LATEX] Allergy (Unknown, Verified 09/24/24 09:20) HIVES AND ITCHING Medication List - Last Reconciled 09/24/24 by SAMUEL Cruz acetaminophen 1,000 mg (2 x 500 mg) PO Q6H PRN aspirin 650 mg PO Q4-6H PRN esomeprazole magnesium 40 mg PO DAILY 90 days fluoxetine 60 mg (3 x 20 mg) PO DAILY 90 days hyoscyamine sulfate 0.125 mg PO BID-QID PRN mesalamine ER (Pentasa) 1,000 mg (2 x 500 mg) PO BID nicotine (Nicoderm CQ) 1 patch transdermal DAILY Tobacco use date assessed: 09/24/24 Dental Screening Dental Screen Date: 09/24/24 Did you have a dental visit in the last 12 months?: Yes Did you have a dental problem in the last 6 months where you did not have access to dental care?: No Was dental information given to patient?: Patient has dentist [facility] Medical History PONV (postoperative nausea and vomiting) Upper respiratory tract infection High blood triglycerides Hx of seizure disorder Psoriasis Cutaneous lupus erythematosus Surgical History Hx of colonoscopy Hx of esophagogastroduodenoscopy History of foot surgery Hx of cholecystectomy Family History Father No problems noted. Mother No problems noted. Brother Depression Sister No problems noted. Sister No problems noted. Sister No problems noted. 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 1. Little interest or pleasure in doing things: not at all 2. Feeling down, depressed, or hopeless: not at all 3. Trouble falling or staying asleep, or sleeping too much: several days 4. Feeling tired or having little energy: several days 5. Poor appetite or overeating: several days 6. Feeling bad about yourself - or that you are a failure or have let yourself or your family down: not at all 7. Trouble concentrating on things, such as reading the newspaper or watching television: not at all 8. Moving or speaking so slowly that other people could have noticed. Or the opposite - being so fidgety or restless that you have been moving around a lot more than usual: not at all 9. Thoughts that you would be better off or of hurting yourself in some way: not at all Total score: 3 Depression Screening Interpretation: Negative Depression Screening Done: Yes 52064 - PHQ-9 Billing: Yes Source: Developed by Drs. Brent Orosco, Suzy Rendon, Ruben Cramer and colleagues, with an educational marcie from [employer]. Thrive Questionnaire Date Thrive assessed: 09/24/24 I am a: Patient What is your living situation today?: I have a steady place to live Within the past 12 months, did the food you bought not last and you didn't have the money to get more?: I choose not to answer this question Within the past 12 months, did you worry whether your food would run out before you got money to buy more?: Never true Do you have trouble paying for medicines?: No Do you have trouble getting transportation to medical appointments?: No Do you have trouble paying your heating and electricity bill?: No Do you have trouble taking care of your child, family member or friend?: No Do you have trouble with day-to-day activities such as bathing, preparing meals, shopping, managing finances, etc.?: No Are you currently unemployed and looking for a job?: No Are you interested in more education?: No Please select the resources that you would like help with: None Currently or been in a relationship where the following occur: No concerns reported and I choose not to answer THRIVE Score: 0 AUDIT C Alcohol Use Questionnaire (AUDIT-C) 1. How often do you have a drink containing alcohol?: Never 3. How often do you have six or more drinks on one occasion?: Never Total Score: 0 Score Reviewed/Action Taken: Yes PASTOR-7 AMB Questionnaire PASTOR-7 Date PASTOR - 7 assessed: 09/24/24 Feeling nervous, anxious, or on edge: 0 = Not at all Not being able to stop or control worryin = Not at all Worrying too much about different things: 0 = Not at all Trouble relaxin = Not at all Being so restless that it is hard to sit still: 0 = Not at all Becoming easily annoyed or irritable: 0 = Not at all Feeling afraid as if something awful might happen: 0 = Not at all Total PASTOR-7 score (0-4 normal; 5-9 mild; 10-14 moderate; 15-21 severe): 0 Source: Developed by Drs. Brent Orosco, Suzy Rendon, Ruben Cramer and colleagues, with an educational marcie from [employer]. PASTOR-7 Assessment Billing PASTOR-7 Assessment Tool: PASTOR-7 Assessment 38254 Physical exam (Primary Care) Vital Signs: Last Vital Signs Pulse 69 09/24/24 09:05 BP 110/70 09/24/24 09:05 Pulse Ox 97 09/24/24 09:05 Oxygen Delivery Method Room Air 09/24/24 09:05 BMI result Body Mass Index 28.0 Tobacco/Smoking Status: Tobacco use Status Tobacco use date assessed 09/24/24 09/24/24 09:09 Patient Tobacco Use Status Current everyday Tobacco 09/24/24 09:05 Tobacco use type Cigarette 09/24/24 09:05 e-Cigarette/Vaping Use Never Used 09/24/24 09:05 PHQ-9: PHQ-9 Score PHQ-9: Total score 3 09/24/24 09:21 Depression Screening Interpretation: Negative Thrive Assessment: Date of Thrive Assessment Date Thrive assessed 09/24/24 09/24/24 09:09 Currently or been in a relationship where the following occur: No concerns reported and I choose not to answer Coding Level of Care Code Est Pt Prev Care 18-39y(49243) Diagnoses Jammed interphalangeal joint of finger of right hand S69.91XA Physical exam Z00.00 Screening for cervical cancer Z12.4 Additional Codes PASTOR-7 Assessment Billing - PASTOR-7 Assessment Tool: PASTOR-7 Assessment 88351 ([id number]) PHQ-9 - 71059 - PHQ-9 Billing: Yes ([id number]) Assessment & Plan Assessment & Plan (1) Jammed interphalangeal joint of finger of right hand: Code(s): S69.91XA - Unspecified injury of right wrist, hand and finger(s), initial encounter Category: Medical (2) Physical exam: Code(s): Z00.00 - Encounter for general adult medical examination without abnormal findings Category: Medical (3) Screening for cervical cancer: Code(s): Z12.4 - Encounter for screening for malignant neoplasm of cervix Category: Medical Plan . Orders: Orders XR finger RT min 2V Today S69.91XA - Unspecified injury of right wrist, hand and finger(s), initial encounter Comprehensive [place]. Panel Fast Today Z00.00 - Encounter for general adult medical examination without abnormal findings UA CC w/rflx Micro + Cult Today Z00.00 - Encounter for general adult medical examination without abnormal findings Lipid Panel Today Z00.00 - Encounter for general adult medical examination without abnormal findings MM screening mammo BI Today Z12.31 - Encounter for screening mammogram for malignant neoplasm of breast Complete Blood Count Auto Diff Today Z00.00 - Encounter for general adult medical examination without abnormal findings TSH reflex Free T4 Today Z00.00 - Encounter for general adult medical examination without abnormal findings Referrals Orthopedics Referral S69.91XA - Unspecified injury of right wrist, hand and finger(s), initial encounter INFORMATION SYSTEMS ANALYST Referral Z12.4 - Encounter for screening for malignant neoplasm of cervix
[2024-09-24 09:05] VITALS: BP 110/70; PULSE 69; O2SAT 97; BMI 28.0
--- OUTSIDE RECORDS SUMMARY | 2024-09-24 09:40 | XMS_ITS | Referral Summary ---
Author Organization [facility] Address [address] [place] [address] Care Team Providers Care Contaminated Land Consultant Name Role Phone Shayne Mejía Primary Care [...] 08/28/2021 Polyarthralgia 05/18/2021 Acute systemic lupus erythematosus 04/26/2021 Depression 04/26/2021 Encounter for test, result negative [...] on file Insurance [employer] Care Teams Contaminated Land Consultant Relationship Specialty Start Date End Date Shayne Mejía [address] [place] [address] PCP - General 02/22/21
--- OUTSIDE RECORDS SUMMARY | 2024-09-24 09:40 | XMS_ITS | Encounter Summary ---
Author Organization [facility] Address [address] [place] [address] Care Team Providers Care Safety Glass Installer Name Role Phone Shayne Mejía Primary Care Provider Reason for Visit * Reason Onset Date Comments Rash 07/05/2021 Biopsy 07/26/2021 Encounter Details Date Type Department Care Team (Late st Contact Info) Description 07/05/2021 Telephone [facility] Central Scheduling Department [address] [place] [phone] Telephone Intake, Staff Rash; Biopsy Social History [...] what time to avoid playing phone tag. [phone] * Telephone Encounter - Sydnee Herreraorly - 07/05/2021 9:30 AM EST Derm DT, rescheduling re rash,blisters on skin, sores in mouth Pt missed appt 06/[address] Christian Chanel due to Covid Per DT, schedule within 1 wk--none available Left detailed vm msg at ext [phone] Informed pt will receive a call back within next few business days documented in this encounter Plan of Treatment Not on file documented as of this encounter Visit Diagnoses Not on filedocumented in this encounter Care Teams Safety Glass Installer Relationship Specialty Start Date End Date Shayne Mejía [address] [place] [address] PCP - General 02/22/21 documented as of this encounter
--- OUTSIDE RECORDS SUMMARY | 2024-09-24 09:41 | XMS_ITS | Clinical Summary ---
Author Organization [facility] Address [address] [place] [address] Care Team Providers Care Automotive Electrical Helper Name Role Phone Shayne Mejía Primary Care [...] Hepatitis C Screening 1985 Pap Smear 1985 Varicella Vaccines (1 of 2 - 13+ 2-dose series) 1998 Hepatitis B Vaccines (1 of 3 - 19+ 3-dose series) 2004 Pneumococcal Vaccine: Pediat donald (0-5 Years) and At-Risk Patients (6-50 Years) (1 of 2 - PCV) 2004 COVID-19 Vaccine (3 - 2023- season) 2024, 11/22/2020 Influenza Vaccine (#1) 2024 04/02/2019, 2017 Alcohol/Substance Use Screening 06/26/2024 Depression Screening and Follow-Up 06/26/2024 Social Drivers of Health Annual Screening 06/26/2024 DTaP,Tdap,and Td Vaccines (3 - Td or Tdap) 07/26/2028 07/26/2018, 10/22/2015 RSV Vaccine (60+ years old a nd patients) (1 - 1-dose 75+ series) 2060 Insurance [employer] Care Teams Automotive Electrical Helper Relationship Specialty Start Date End Date Shayne Mejía [address] [place], [place] [phone] PCP - General 02/22/21
== END 2024-09-24 09:57 | disposition home or self-care (01) ==
LOC: HO.HMCC 08:58
PROVIDERS: PCP Nurse Practitioner Family; Visit Provider Nurse Practitioner Family
DX: S69.91XA Unspecified injury of right wrist, hand and finger(s), initial encounter (principal); Z00.00 Encounter for general adult medical examination without abnormal findings; Z12.4 Encounter for screening for malignant neoplasm of cervix

== ENCOUNTER → 2024-09-24 09:43 | Outpatient (BNV) | payer OTHER, SELFPAY | PROVIDERS: PCP Nurse Practitioner Family; Visit Provider Radiology Diagnostic Radiology | DX: S69.91XD Unspecified injury of right wrist, hand and finger(s), subsequent encounter (principal) | CPT/HCPCS: 73140 ==

== ENCOUNTER 2024-10-09 08:59 | Outpatient (AMB) | payer OTHER, SELFPAY ==
[2024-10-09 09:09] VITALS: BMI 28.0
--- NOTE | 2024-10-09 09:09 | MHC.OFFVIS ---
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 States about 1-2 weeks ago, she missed a step while walking up a flight of stairs, fell down and landed on her small finger. Seen her PCP 3 day later who referred her to orthopedics for further evaluation. Currently states she has soreness, swelling and weakness. Denies numbness, tingling or locking of any finger. 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 She says she fell down her stairs. She complains of pain & swelling in her small finger, primarily her PIP joint. She says she has limited ROM of her small finger. She has a Hx of Crohn's disease, Lupus (in remission), and is a smoker. [facility] Medical History PONV (postoperative nausea and vomiting) Upper respiratory tract infection High blood triglycerides Hx of seizure disorder Psoriasis Cutaneous lupus erythematosus Surgical History Hx of colonoscopy Hx of esophagogastroduodenoscopy History of foot surgery Hx of cholecystectomy Family History Father No problems noted. Mother No problems noted. Brother Depression Sister No problems noted. Sister No problems noted. Sister No problems noted. 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 Cognitive needs: No Hearing needs: No Vision needs: Yes Review of Systems Const All systems reviewed & are unremarkable except as noted in HPI and below Physical Exam Vital Signs: BMI result Body Mass Index 28.0 Const General: cooperative, healthy appearing and no acute distress Orientation/consciousness: patient oriented x3 HEENT Head: Yes normocephalic and Yes atraumatic Eyes EOM: EOMs intact bilaterally Resp Effort & Inspection: normal respiratory effort and able to speak in complete sentences Cardio Jugular venous distension: no JVD Skin General skin exam: turgor normal Rashes: no rashes Neuro General: patient oriented x3 Extrem Other: Evaluation of Right Upper Extremity: The patient is alert, oriented, and in no acute distress Neuro: Median, Ulnar, Radial nerves motor and sensory intact and sensation is normal to the tips of all digits Vascular: Cap refill brisk ROM: She can make a fist and actively extend all her digits She can actively keep her small finger held in extension against resistance Skin: No lacerations or abrasions. General: No Ecchymosis. No Erythema or evidence of infection. Swelling [ ] Most tender over 5th metacarpal head & neck Tender over 4th & 5th CMC joints No tenderness over [ ] No tenderness over [ ] No tenderness over [ ] Radiographs: 3 views of the right hand from 09/24/24 were reviewed by me today in clinic. They show no fractures or dislocations Psych Appearance: grossly normal Affect: normal affect Attitude: cooperative Assessment & Plan Assessment & Plan (1) Contusion of bone: Comment: R 5th metacarpal Code(s): T14.8XXA - Other injury of unspecified body region, initial encounter Category: Medical (2) Smoker: Code(s): F17.200 - Nicotine dependence, unspecified, uncomplicated Category: Social Hx Plan Assessment & Plan: 1. Right 5th metacarpal contusion S/P fall, DOI: 09/22/24 I educated her about this condition I discussed operative and non-operative treatment options We will manage this conservatively Her ring & small fingers will be Michael-taped for the next 2 weeks. She can remove this at night to sleep She will work on gentle ROM exercises at home I discussed activity modification, she should limit or avoid any heavy lifting or impact activities for the next 4 weeks She can follow up prn Scribed for Magaly Bo MD by Richard Almaraz, medical sales, on 10/09/24 at 9:20 AM, EST. Coding Level of Care Code New Pt Level 3 (16316) Diagnoses Contusion of bone T14.8XXA Smoker F17.200
--- OUTSIDE RECORDS SUMMARY | 2024-10-09 09:33 | XMS_ITS | Encounter Summary ---
Author Organization [facility] Address [address] [place] [address] Care Team Providers Care Matcher Offbearer Name Role Phone Shayne Mejía Primary Care Provider Reason for Visit * Reason Onset Date Comments Rash 07/05/2021 Biopsy 07/26/2021 Encounter Details Date Type Department Care Team (Late st Contact Info) Description 07/05/2021 Telephone [facility] Central Scheduling Department [address] [place] [id number] Telephone Intake, Staff Rash; Biopsy Social History [...] what time to avoid playing phone tag. [phone] * Telephone Encounter - Sydnee Herreraorly - 07/05/2021 9:30 AM EST Derm DT, rescheduling re rash,blisters on skin, sores in mouth Pt missed appt 06/[address] Christian Chanel due to Covid Per DT, schedule within 1 wk--none available Left detailed vm msg at ext [phone] Informed pt will receive a call back within next few business days documented in this encounter Plan of Treatment Not on file documented as of this encounter Visit Diagnoses Not on filedocumented in this encounter Care Teams Matcher Offbearer Relationship Specialty Start Date End Date Shayne Mejía [address] [place] [address] PCP - General 02/22/21 documented as of this encounter
--- OUTSIDE RECORDS SUMMARY | 2024-10-09 09:34 | XMS_ITS | Referral Summary ---
Author Organization [facility] Address [address] [place] [address] Care Team Providers Care Front Office Help Name Role Phone Shayne Mejía Primary Care [...] on file Insurance [employer] Care Teams Front Office Help Relationship Specialty Start Date End Date Shayne Mejía [address] [place] [address] PCP - General 02/22/21
--- OUTSIDE RECORDS SUMMARY | 2024-10-09 09:34 | XMS_ITS | Clinical Summary ---
Author Organization [facility] Address [address] [place] [address] Care Team Providers Care Director Of Enrollment Name Role Phone Shayne Mejía Primary Care [...] Screening 1985 HPV and Pap Smear 1985 Pap Smear 1985 Varicella Vaccines (1 of 2 - 13+ 2-dose series) 1998 Hepatitis B Vaccines (1 of 3 - 19+ 3-dose series) 2004 COVID-19 Vaccine (3 - 2023-2 5 season) 2024 12/13/2020, 11/22/2020 Alcohol/Substance Use Screening 06/26/2024 Influenza Vaccine (Season Ended) 2025 04/02/2019, 04/28/2018 DTaP,Tdap,and Td Vaccines (3 - Td or Tdap) 07/26/2028 07/26/2018, 10/22/2015 RSV Vaccine (60+ years old and patients) (1 - 1-dose 75+ series) 2060 Pneumococcal Vaccine: Pediatric (0-5 Years) and At-Risk Patients (6-50 Years) Aged Out No longer eligible based on patient's age to complete this topic Insurance [employer] Care Teams Director Of Enrollment Relationship Specialty Start Date End Date Shayne Mejía: [id number] [address] [place] [address] PCP - General 02/22/21
== END 2024-10-09 09:30 | disposition home or self-care (01) ==
LOC: HO.HOS 08:59
PROVIDERS: PCP Nurse Practitioner Family; Visit Provider Orthopaedic Surgery
DX: S60.221A Contusion of right hand, initial encounter (principal); T14.8XXA Other injury of unspecified body region, initial encounter; F17.200 Nicotine dependence, unspecified, uncomplicated
CPT/HCPCS: 99203

== ENCOUNTER → 2024-10-09 08:59 | Outpatient (BNVA) | payer OTHER, SELFPAY | PROVIDERS: PCP Nurse Practitioner Family; Visit Provider Orthopaedic Surgery | DX: S60.221A Contusion of right hand, initial encounter (principal); F17.210 Nicotine dependence, cigarettes, uncomplicated | CPT/HCPCS: 99202 ==

== ENCOUNTER → 2024-10-23 09:11 | Outpatient (BNV) | payer OTHER, SELFPAY | PROVIDERS: PCP Nurse Practitioner Family; Visit Provider Radiology Diagnostic Radiology | DX: Q63.1 Lobulated, fused and horseshoe kidney (principal) | CPT/HCPCS: 72197; 74183 ==

== ENCOUNTER 2024-10-23 09:31 | Outpatient (REF) | payer OTHER, SELFPAY ==
--- NOTE | ~2024-10-23 | MR_ITS ---
EXAMINATION: MR PELVIS WITHOUT THEN WITH IV CONTRAST, MR ABDOMEN WITHOUT THEN WITH IV CONTRAST HISTORY: K52.9 - Noninfective gastroenteritis and colitis, unspecified COMPARISON: Correlation is made with a CT enterography examination dated 04/23/2024. TECHNIQUE: Axial in and out of phase T1-weighted gradient echo, coronal TRUFI, and axial and coronal HASTE T2 with fat saturation images were obtained through the abdomen. Subsequently, fat suppressed axial and coronal T1-weighted images were obtained after the intravenous administration of 7 mL Gadavist. The patient received oral contrast material. FINDINGS: The small bowel is normal in caliber. No stricture or abnormal wall thickening is seen. There is no abnormal contrast enhancement. Normal small bowel peristalsis is noted. Terminal ileum is unremarkable. The colon is grossly unremarkable, although evaluation is limited by stool within the colon. There is no significant signal loss within the liver on opposed phase imaging to suggest steatosis. The gallbladder is absent. The pancreas, spleen, and adrenals are unremarkable. There is a horseshoe kidney. No retroperitoneal lymphadenopathy or ascites is identified in the abdomen or pelvis. An IUD is noted in the endometrial cavity of the uterus. MR/MR abdomen wo/w con IMPRESSION: 1. No bowel abnormality is identified. 2. Horseshoe kidney. Electronically signed by: Brent Ashton MD 10/23/2024 03:30 PM EDT
--- NOTE | ~2024-10-23 | MR_ITS ---
EXAMINATION: MR PELVIS WITHOUT THEN WITH IV CONTRAST, MR ABDOMEN WITHOUT THEN WITH IV CONTRAST HISTORY: K52.9 - Noninfective gastroenteritis and colitis, unspecified COMPARISON: Correlation is made with a CT enterography examination dated 04/23/2024. TECHNIQUE: Axial in and out of phase T1-weighted gradient echo, coronal TRUFI, and axial and coronal HASTE T2 with fat saturation images were obtained through the abdomen. Subsequently, fat suppressed axial and coronal T1-weighted images were obtained after the intravenous administration of 7 mL Gadavist. The patient received oral contrast material. FINDINGS: The small bowel is normal in caliber. No stricture or abnormal wall thickening is seen. There is no abnormal contrast enhancement. Normal small bowel peristalsis is noted. Terminal ileum is unremarkable. The colon is grossly unremarkable, although evaluation is limited by stool within the colon. There is no significant signal loss within the liver on opposed phase imaging to suggest steatosis. The gallbladder is absent. The pancreas, spleen, and adrenals are unremarkable. There is a horseshoe kidney. No retroperitoneal lymphadenopathy or ascites is identified in the abdomen or pelvis. An IUD is noted in the endometrial cavity of the uterus. MR/MR pelvis wo/w con IMPRESSION: 1. No bowel abnormality is identified. 2. Horseshoe kidney. Electronically signed by: Brent Ashton MD 10/23/2024 03:30 PM EDT
--- OUTSIDE RECORDS SUMMARY | 2024-10-23 10:15 | XMS_ITS | Clinical Summary ---
Author Organization [facility] Address [address] [place] [address] Care Team Providers Care Carpenter And Joiner Name Role Phone Shayne Mejía Primary Care Provider [phone] Allergies Active Allergy Reactions Criticality Noted Date [...] this topic Insurance [employer] Care Teams Carpenter And Joiner Relationship Specialty Start Date End Date Shayne Mejía: [id number] [address] [place] [address] PCP - General 02/22/21
--- OUTSIDE RECORDS SUMMARY | 2024-10-23 10:15 | XMS_ITS | Encounter Summary ---
Author Organization [facility] Address [address] [place] [address] Care Team Providers Care Adult Neurologist Name Role Phone Shayne Mejía Primary Care Provider [phone] Reason for Visit * Reason Onset Date Comments Rash 07/05/2021 Biopsy 07/26/2021 Encounter Details Date Type Department Care Team (Late st Contact Info) Description 07/05/2021 Telephone [facility] Central Scheduling Department [address] [place] [address] Telephone Intake, Staff Rash; Biopsy Social History [...] what time to avoid playing phone tag. [phone] * Telephone Encounter - Sydnee Herreraorly - 07/05/2021 9:30 AM EST Derm DT, rescheduling re rash,blisters on skin, sores in mouth Pt missed appt 06/[address] Christian Chanel due to Covid Per DT, schedule within 1 wk--none available Left [place] msg at ext [phone] Informed pt will receive a call back within next few business days documented in this encounter Plan of Treatment Not on file documented as of this encounter Visit Diagnoses Not on filedocumented in this encounter Care Teams Adult Neurologist Relationship Specialty Start Date End Date Shayne Mejía [address] [place] [address] PCP - General 02/22/21 documented as of this encounter
--- OUTSIDE RECORDS SUMMARY | 2024-10-23 10:15 | XMS_ITS | Referral Summary ---
Author Organization [facility] Address [address] [place] [address] Care Team Providers Care Executive Vice President And Chief Operating Officer Name Role Phone Shayne Mejía Primary Care Provider [phone] Allergies Active Allergy Reactions Criticality Noted Date [...] on file Insurance [employer] Care Teams Executive Vice President And Chief Operating Officer Relationship Specialty Start Date End Date Shayne Mejía [address] [place] [address] PCP - General 02/22/21
[2024-10-23] MEDS: gadobutroL 7.5 ML VIAL IVPUSH (11:51)
== END 2024-10-23 09:32 | disposition home or self-care (01) ==
LOC: HO.MRI 09:31
PROVIDERS: PCP Nurse Practitioner Family; Visit Provider Internal Medicine Gastroenterology
DX: K52.9 Noninfective gastroenteritis and colitis, unspecified (principal)
CPT/HCPCS: 72197; 74183; A9585

== ENCOUNTER 2024-12-26 08:40 | Outpatient (AMB) | payer OTHER, SELFPAY ==
--- OUTSIDE RECORDS SUMMARY | 2024-12-26 08:46 | XMS_ITS | Encounter Summary ---
Author Organization [facility] Address [address] [place] [address] Care Team Providers Care Energy Efficiency Specialist Name Role Phone Shayne Mejía Primary Care Provider Reason for Visit * Reason Onset Date Comments Rash 07/05/2021 Biopsy 07/26/2021 Encounter Details Date Type Department Care Team (Late st Contact Info) Description 07/05/2021 Telephone [facility] Central Scheduling Department [address] [place] [address] Telephone Intake, Staff Rash; Biopsy Social History [...] what time to avoid playing phone tag. [phone] * Telephone Encounter - Sydnee Herreraorly - 07/05/2021 9:30 AM EST Derm DT, rescheduling re rash,blisters on skin, sores in mouth Pt missed appt 06/[address] Christian Chanel due to Covid Per DT, schedule within 1 wk--none available Left detailed vm msg at ext [phone] Informed pt will receive a call back within next few business days documented in this encounter Plan of Treatment Not on file documented as of this encounter Visit Diagnoses Not on filedocumented in this encounter Care Teams Energy Efficiency Specialist Relationship Specialty Start Date End Date Shayne Mejía [address] [place] [address] PCP - General 02/22/21 documented as of this encounter
[2024-12-26 08:51] VITALS: BP 118/72; PULSE 72; TEMP 37; O2SAT 97; BMI 27.7
--- NOTE | 2024-12-26 08:51 | MHC.OFFWIV ---
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, not working Intake Note: Patient states shes been on antibiotics times 4 days states its not working Patient Tobacco Use Status: Current everyday Tobacco user Educational Audiologist Required: No Is last menstrual period known: Yes Post menopausal: No Patient : No Allergies gluten (GLUTEN) Allergy (Mild, Verified 12/26/24 08:56) SWELLING, ABDOMINAL PAIN latex (LATEX) Allergy (Unknown, Verified 12/26/24 08:56) HIVES AND ITCHING Do you need a note to return to daycare/school/sports/work: Yes HPI HPI Comments History of Present Illness Details History - The patient is a 39-year-old female presenting with severe throat pain and difficulty swallowing. - Symptoms began last Monday, with initial treatment at urgent care where a strep test was negative, but antibiotics were prescribed as a precaution. - Despite antibiotic treatment, symptoms persisted, including fever, body aches, and inability to eat or drink, leading to an ER visit for IV fluids and a steroid injection. - The patient reports immense pain after the steroid wore off, with continued inability to eat, drink, or talk. - COVID-19, flu, and RSV tests were negative, and there was no blood work for mononucleosis. - The patient has a history of autoimmune disease, which may affect her ability to fight infections. - She has a ROGERS, sore throat, pain when she swallows, body aches, and chills. - She has been on the amoxicllin with no relief. - She denies CP, SOB, abd pain, n/v/d. - She admits to smoking marijuana. Physical Exam General: Cooperative, appears uncomfortable, and in no acute distress Orientation/consciousness: Patient oriented x3 Head: Normal to inspection Ears: Hearing grossly normal bilaterally, external ears normal, TMs normal, not bulging. Nose: Normal external nose present, normal nares present, and no nasal discharge present. Face and sinus: Sinuses nontender to palpation. Mouth: Tongue with white coating noted. Normal oral and palatal mucosa present and moist mucous membranes noted. Throat: Tonsils swollen with white, pus-like exudates noted bilaterally. Uvula is midline. Posterior oropharynx with erythema and no exudates. Neck: Normal visual inspection, full ROM. Lymphadenopathy noted bilaterally. Respiratory: Clear to auscultation bilaterally. Normal respiratory effort, able to speak in complete sentences. No respiratory distress, not tachypneic, no tripod positioning and no use of accessory muscles. Cardiovascular: Regular rate and rhythm. Normal S1 and S2 Skin: Red rash noted on the cheeks bilaterally. Patient was informed and verbally consented to the use of an ambient scribe for clinic note documentation during this visit [facility] Medical History PONV (postoperative nausea and vomiting) Upper respiratory tract infection High blood triglycerides Hx of seizure disorder Psoriasis Cutaneous lupus erythematosus Surgical History Hx of colonoscopy Hx of esophagogastroduodenoscopy History of foot surgery Hx of cholecystectomy Family History Father No problems noted. Mother No problems noted. Brother Depression Sister No problems noted. Sister No problems noted. Sister No problems noted. 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 Cognitive needs: No Hearing needs: No Vision needs: Yes Review of Systems Const All systems reviewed & are unremarkable except as noted in HPI and below Physical Exam Vital Signs: Last Vital Signs Temp 98.6 F 12/26/24 08:51 Pulse 72 12/26/24 08:51 BP 118/72 12/26/24 08:51 Pulse Ox 97 07/03/25 08:51 Oxygen Delivery Method Room Air 07/03/25 08:51 BMI result Body Mass Index 27.7 Assessment & Plan Assessment & Plan (1) Sore throat: Code(s): J02.9 - Acute pharyngitis, unspecified (2) Oral thrush: Code(s): B37.0 - Candidal stomatitis Plan Most likely strep vs viral vs peritonsillar abscess Plan - Discontinue amoxicillin and initiate augmentin to address the peritonsillar abscess. - Prescribe a swish and swallow medication for oral thrush management. - prednisone for 5 days - Diflucan sent for a prophylaxic medication for candidiasis - Drink lots of fluids - Diet as tolerated - tylenol or motrin as needed - follow up with PCP - VSS, pt well appearing Medications: New amoxicillin-pot clavulanate 875-125 mg 1 tab PO Q12H 28 tabs 0RF 14 days nystatin administer 1/2 of dose in each side of the mouth 5 mL buccal qid 140 mL 0RF 7 days fluconazole may repeat second dose 72 hrs after first dose if symptoms persist 150 mg PO Q3D 2 tabs 0RF prednisone 50 mg PO QAM 5 tabs 0RF Coding Level of Care Code Est Pt Level 4 (15459) Diagnoses Sore throat J02.9 Oral thrush B37.0
== END 2024-12-26 10:05 | disposition home or self-care (01) ==
PROVIDERS: PCP Nurse Practitioner Family; Visit Provider Physician Assistant Medical
DX: J02.9 Acute pharyngitis, unspecified (principal); B37.0 Candidal stomatitis

== ENCOUNTER → 2024-12-26 08:40 | Outpatient (BNVA) | payer OTHER, SELFPAY | PROVIDERS: PCP Nurse Practitioner Family; Visit Provider Physician Assistant Medical | DX: J02.9 Acute pharyngitis, unspecified (principal); B37.0 Candidal stomatitis | CPT/HCPCS: 99212 ==

== ENCOUNTER 2025-04-09 08:58 | Outpatient (AMB) | payer OTHER, SELFPAY ==
--- NOTE | 2025-04-09 09:04 | MHC.OFFWIV ---
Intake Vital Signs 04/09/25 09:10 Height 5 ft 2 in Weight 145 lb BMI 26.5 BP 102/60 Blood Pressure Location Rt brachial Position Sitting Pulse 60 Pulse Source Pulse Oximeter Temp 97.6 F Temp Source Oral Pulse Oximetry (%) 97 Oxygen Delivery Method Room Air Intake Visit Reasons: EP-uti Patient Tobacco Use Status: Current everyday Tobacco user Allergies gluten (GLUTEN) Allergy (Mild, Verified 04/09/25 09:13) SWELLING, ABDOMINAL PAIN latex (LATEX) Allergy (Unknown, Verified 04/09/25 09:13) HIVES AND ITCHING Do you need a note to return to daycare/school/sports/work: No HPI HPI Comments History of Present Illness Details History - The patient is a 39-year-old female presenting with symptoms suggestive of a urinary tract infection. - Reports frequent urination with cloudy appearance and burning sensation, starting around Monday or Monday. - She has been using Azo for symptom relief but is aware of the limitations of prolonged use. - Experienced nausea and vomiting the previous night but denies any known fever. - Occasionally experiences yeast infections when on antibiotics. - She denies fever, chills, CP, SOB, abd pain, n/v/d, back pain or blood in the urine. - She denies vaginal discharge or itching. - Her LMP was 2 weeks ago. Physical Exam General: Cooperative, healthy appearing, comfortable, no acute distress and well developed Cardiac: Normal S1 and S2. RRR, no M/R/G noted. Respiratory: Normal respiratory effort and able to speak in complete sentences. Clear to auscultation bilaterally. No w/r/r noted. Skin: No rashes or lesions noted. GI: Normal inspection. Normal BS noted. Soft, non-tender, non-distended. No TTP of all 4 quadrants. No guarding or rebound tenderness noted. Back: Negative CVA bilaterally Patient was informed and verbally consented to the use of an ambient scribe for clinic note documentation during this visit. [facility] Medical History PONV (postoperative nausea and vomiting) Upper respiratory tract infection High blood triglycerides Hx of seizure disorder Psoriasis Cutaneous lupus erythematosus Surgical History Hx of colonoscopy Hx of esophagogastroduodenoscopy History of foot surgery Hx of cholecystectomy Family History Father No problems noted. Mother No problems noted. Brother Depression Sister No problems noted. Sister No problems noted. Sister No problems noted. 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[employer]/ [employer] Cognitive needs: No Hearing needs: No Vision needs: Yes Review of Systems Const All systems reviewed & are unremarkable except as noted in HPI and below Physical Exam Vital Signs: Last Vital Signs Temp 97.6 F 04/09/25 09:10 Pulse 60 04/09/25 09:10 BP 102/60 04/09/25 09:10 Pulse Ox 97 04/09/25 09:10 Oxygen Delivery Method Room Air 04/09/25 09:10 BMI result Body Mass Index 26.5 Results AMB Urinalysis, Automated UA Leukoctes 15 German/uL Last Edit by Danyell Hurt CMA on 04/09/25 09:31 UA Nitrite Negative Last Edit by Danyell Hurt CMA on 04/09/25 09:31 UA Urobilinogen 0.2 mg/dL Last Edit by Danyell Hurt CMA on 04/09/25 09:31 UA Protein 0 mg/dL Last Edit by Danyell Hurt CMA on 04/09/25 09:31 UA pH 6.0 Last Edit by Danyell Hurt CMA on 04/09/25 09:31 UA Blood 25 Matias/uL Last Edit by Danyell Hurt CMA on 04/09/25 09:31 UA Specific [place] 1.005 Last Edit by Danyell Hurt CMA on 04/09/25 09:31 UA Ketone Negative Last Edit by Danyell Hurt CMA on 04/09/25 09:31 UA Bilirubin 0 mg/dL Last Edit by Danyell Hurt CMA on 04/09/25 09:31 UA Glucose 0 mg/dL Last Edit by Danyell Hurt CMA on 04/09/25 09:31 Results Reviewed Results Reviewed: Laboratory Last Values Urine pH (Auto) 6.0 04/09/25 09:09 Specific [place] (Auto) 1.005 04/09/25 09:09 Urine Protein (Auto) 0 mg/dL 04/09/25 09:09 Glucose (UA)(Auto) 0 mg/dL 04/09/25 09:09 Urine Ketones (Auto) Negative 04/09/25 09:09 Urine Blood (Auto) 25 Matias/uL 04/09/25 09:09 Urine Nitrite (Auto) Negative 04/09/25 09:09 Urine Bilirubin (Auto) 0 mg/dL 04/09/25 09:09 Urine Urobilinogen (Auto) 0.2 mg/dL 04/09/25 09:09 Leukocyte Esterase (Auto) 15 German/uL 04/09/25 09:09 Assessment & Plan Assessment & Plan (1) Dysuria: Code(s): R30.0 - Dysuria Plan Most likely UTI UA +leuko, 1+blood Plan - Initiate antibiotic therapy for suspected urinary tract infection and send urine for culture. - Prescribe Diflucan to prevent potential yeast infection due to antibiotic use. - Advise increased fluid intake, including cranberry juice, to aid in symptom relief. - will order a urine culture - will call with the results and adjust the treatment as necessary - follow up with PCP Orders: Orders AMB Urinalysis Automated Today Z13.9 - Encounter for screening, unspecified Urine Culture Today N39.0 - Urinary tract infection, site not specified Medications: New cefuroxime axetil 500 mg PO Q12H 10 tabs 0RF fluconazole may repeat second dose 72 hrs after first dose if symptoms persist 150 mg PO Q3D 2 tabs 0RF Coding Level of Care Code Est Pt Level 3 (41380) Diagnoses Dysuria R30.0
[2025-04-09 09:10] VITALS: BP 102/60; PULSE 60; TEMP 36.4; O2SAT 97; BMI 26.5
--- OUTSIDE RECORDS SUMMARY | 2025-04-09 09:40 | XMS_ITS | Clinical Summary ---
Author Organization [facility] Address [address] [place] [phone] Phone Care Team Providers Care Reworker Name Role Phone Shayne Mejía NP Primary Care Provider + Allergies Active Allergy Reactions Criticality Noted Date Comments Latex Itching,Rash Low 05/17/2021 RASH OR WELT Medications naproxen (NAPROSYN) 375 MG tablet Take 1 tablet (375 mg total) by mouth 2 (two) times a day with meals. 20 tablet 05/24/2023 Active diphenhydramine- tmkminxzv-hnlq-i ag-simethicone (MAGIC MOUTHWASH-BLM) [id number] mg/30mL suspension Swish and spit 10 mL 4 (four) times a day as needed (throat pain). 178 mL 12/24/2024 Active Social History Tobacco Use Types Packs/Day Years Used Date Smoking Tobacco: Never Assessed Education Answer Date Recorded Are you interested in more education? Not on jeffrey e 05/24/2023 Are you concerned about learning? Not on file 05/24/2023 No 05/24/2023 No 05/24/2023 Food Answer Date Recorded Within the past 6 months we worried whether our food would run out before we got money to buy more. Never True 12/24/2024 Within the past 6 months the food we bought just didn't last and we didn't have enough money to get more. Never True Residential Stability Answer Date Recor ded What is your housing situation today? I have lindsay lu 12/24/2024 How many times have you move d in the past 12 months? Zero (I did not move) 12/24/2024 Paying for Meds Answer Date Recorded Do you have trouble paying for medicines? No 12/24/2024 Paying Utility Bills Answer Date Record ed Do you have trouble paying your heating or elect ricity bill? No 12/24/2024 Transportation Answer Date Recorded Has the lack of transportati on kept you from medical appointments or from getting medications? No 12/24/2024 Digital Access Answer Date Recorded No 12/24/2024 Yes 12/24/2024 Do you have reliable internet access at home? Ye s 12/24/2024 Do you have a device (e.g., phone, tablet, computer) with a working camera? Yes 12/24/2024 Intimate Partner Violence Answer Date R ecorded Are you denied basic needs s uch as food, clothing, or medical care? No 12/24/2024 In the past 12 months have y ou been in a relationship with a person who hurts, threatens, or tries to control you? No 12/24/2024 Are you denied basic needs s uch as food, clothing, or medical care? No 12/24/2024 In the past 12 months have y ou been in a relationship with a person who hurts, threatens, or tries to control you? No 12/24/2024 Comments Unknown Sex and Gender Information Value Date Recorded Sex Assigned at Not on file Legal Sex Female 9:49 PM EST Gender Identity Not on file Sexual Orientation Not on file Last Filed Vital Signs Vital Sign Reading Time Taken Comments Blood Pressure 94/55 12/24/2024 5:36 PM EDT Pulse 67 12/24/2024 5:36 PM EDT Temperature 36.8 C (98.2 F) 12/24/2024 5:36 PM EDT Respiratory Rate 18 12/24/2024 5:36 PM EDT Oxygen Saturation 97% 12/24/2024 5:36 PM EDT Inhaled Oxygen Concentration - - Weight 65.8 kg (145 lb) 12/24/2024 3:24 PM EDT Height 157.5 cm (5' 2 ) 12/24/2024 3:24 PM EDT Body Mass Index 26.52 12/24/2024 3:24 PM EDT Plan of Treatment Health Maintenance Due Date Last Done Comments Adult Td,Tdap Booster 1985 DEPRESSION SCREENING 1997 SMOKING Hx and SMOKELESS TOB ACCO SCREENING 1998 HEPATITIS C SCREENING 2003 HIV ONE-TIME SCREENING (18-6 5 YEARS) 2003 PAP SMEAR 2006 INFLUENZA VACCINE (#1) 2025 COVID-19 VACCINE (1 - 2024-2 6 season) 2025 SCREENING FOR DIABETES 03/26/2027 03/26/2024 HEPATITIS A VACCINES Aged Out No long er eligible based on patient's age to complete this topic HIB VACCINES Aged Out No longer eligi ble based on patient's age to complete this topic MENINGOCOCCAL VACCINES (ACWY) Aged Out No longer eligible based on patient's age to complete this topic MENINGOCOCCAL VACCINES (B) Aged Out N o longer eligible based on patient's age to complete this topic PNEUMOCOCCAL VACCINES (0-49 years) Aged Out No longer eligible based on patient's age to complete this topic Medical Devices Not on file Insurance ACO ACO ACO ACO ACO [facility] ACO Care Teams Reworker Relationship Specialty Start Date End Date Shayne Mejía NP [address] [place] [address] PCP - General 05/24/23 Additional Source Comments The information contained in this document represents components of the legal health record. It is not the complete legal health record.[facility]
--- OUTSIDE RECORDS SUMMARY | 2025-04-09 09:40 | XMS_ITS | Clinical Summary ---
Author Organization [facility] Address [address] [place] [address] Care Team Providers Care Commercial Loan Manager Name Role Phone Shayne Mejía Primary Care [...] 76 08/27/2021 10:32 AM EST Temperature 36.4 C (97.6 F) 05/17/2021 2:28 PM EST Respiratory Rate - - Oxygen Saturation - - Inhaled Oxygen Concentration - - Weight 79.8 kg (176 lb) 05/17/2021 2:28 PM EST Height - - Body Mass Index - - Plan of Treatment Health Maintenance Due Date Last Done Comments HIV Screening 1985 Varicella Vaccines (1 of 2 - 13+ 2-dose series) 1998 Hepatitis B Vaccines (1 of 3 - 19+ 3-dose series) 2004 Alcohol/Substance Use Screening 06/26/2024 COVID-19 Vaccine (3 - 2024-2 6 season) 2025 12/13/2020, 11/22/2020 Influenza Vaccine (#1) 2025 9, 04/28/2018 DTaP,Tdap,and Td Vaccines (3 - Td or Tdap) 07/26/2028 07/26/2018, 10/22/2015 RSV Vaccine (60+ years old and patients) (1 - 1-dose 75+ series) 2060 Pneumococcal Vaccine: Pediatric (0-5 Years) and At-Risk Patients (6-50 Years) Aged Out No longer eligible based on patient's age to complete this topic Insurance [employer] Care Teams Commercial Loan Manager Relationship Specialty Start Date End Date Shayne Mejía [address], [place] [phone] PCP - General 02/22/21
--- OUTSIDE RECORDS SUMMARY | 2025-04-09 09:40 | XMS_ITS | Encounter Summary ---
Author Organization [facility] Address [address] [place] [address] Care Team Providers Care Window Draper Name Role Phone Shayne Mejía Primary Care Provider Reason for Visit * Reason Onset Date Comments Rash 07/05/2021 Biopsy 07/26/2021 Encounter Details Date Type Department Care Team (Late st Contact Info) Description 07/05/2021 Telephone [facility] Central Scheduling Department [address] [place] [id number] Telephone Intake, Staff Rash; Biopsy Social History [...] what time to avoid playing phone tag. [phone] * Telephone Encounter - Sydnee Herreraorly - 07/05/2021 9:30 AM EST Derm DT, rescheduling re rash,blisters on skin, sores in mouth Pt missed appt 06/[address] Christian Chanel due to Covid Per DT, schedule within 1 wk--none available [place] [phone] Informed pt will receive a call back within next few business days documented in this encounter Plan of Treatment Not on file documented as of this encounter Visit Diagnoses Not on filedocumented in this encounter Care Teams Window Draper Relationship Specialty Start Date End Date Shayne Mejía [address] [place] [address] PCP - General 02/22/21 documented as of this encounter
--- OUTSIDE RECORDS SUMMARY | 2025-04-09 09:40 | XMS_ITS | Encounter Summary ---
Author Organization [facility] Address [address] [place] [phone] Phone Care Team Providers Care Merchandise Flow Team Member Name Role Phone Shayne Mejía INFORMATION SYSTEMS PROJECT MANAGER Primary Care Provider + Encounter Details Date Type Department Care Team (Late st Contact Info) Description 08/08/2023 Procedure Pass [facility] Scan - [address] [id number] Social History Tobacco Use Types Packs/Day Years Used Date Smoking Tobacco: Never Assessed Education Answer Date Recorded Are you interested in more education? Not on jeffrey e 05/24/2023 Are you concerned about learning? Not on file 05/24/2023 No 05/24/2023 No 05/24/2023 Digital Access Answer Date Recorded No 05/24/2023 No 05/24/2023 Reliable internet access at home? Not on file 05/24/2023 Device with a working camera? Not on file Comments Unknown Sex and Gender Information Value Date Recorded Sex Assigned at Not on file Legal Sex Female 9:49 PM EST Gender Identity Not on file Sexual Orientation Not on file documented as of this encounter Functional Status * Calculated C-SSRS Risk Score (Lifetime/Recent) Answer Date of Assessment Author No Risk Indicated 08/08/2023 1:31 PM Brien Rivera * [place] Suicide Severity Rating Scale (Screener/Recent Self-Report) Question Answer Date of Assessment Author 1. Wish to be (Past 1 Month) No 024 1:31 PM Brien Rivera 2. Non-Specific Active Suici cr Thoughts (Past 1 Month) No 08/08/2023 1:31 PM Gricelda Rivera 6. Suicidal Behavior (Lifetime) No 1:31 PM Brien Rivera documented as of this encounter Plan of Treatment Not on file documented as of this encounter Visit Diagnoses Not on filedocumented in this encounter Additional Health Concerns Infection Onset Date Last Indicated Resolved Time CoV-Risk 12/24/2024 12/24/2024 01/04/2025 1:21 AM EDT documented as of this encounter Care Teams Merchandise Flow Team Member Relationship Specialty Start Date End Date Shayne Mejía NP [facility] [place] [address] PCP - General 05/24/23 documented as of this encounter Additional Source Comments The information contained in this document represents components of the legal health record. It is not the complete legal health record.[facility]
== END 2025-04-09 10:08 | disposition home or self-care (01) ==
PROVIDERS: PCP Nurse Practitioner Family; Visit Provider Physician Assistant Medical
DX: Z13.9 Encounter for screening, unspecified (principal); R30.0 Dysuria

== ENCOUNTER 2025-04-09 08:58 | Outpatient (REF) | payer OTHER, SELFPAY | END 2025-04-09 08:59 | disposition home or self-care (01) | LOC: HO.LNP 08:58 | PROVIDERS: PCP Nurse Practitioner Family; Visit Provider Physician Assistant Medical | DX: R30.0 Dysuria (principal); Z13.89 Encounter for screening for other disorder | CPT/HCPCS: 81003; 87086; 99212 ==